=== PATIENT | female | born 1955 | race Caucasian/White ===

== ENCOUNTER → 2016-07-26 | Outpatient (REF) | payer BC ==
[~2016-07-26] MED LIST: /AMLO25TA OR; /ESOM40CA PO; /MOXI40TA OR; ACET65TA OR; ASPI81TA83 PO; CELE20TA PO; COMBVENT INH; INDAPAMIDE PO; MYLI40DR OR; POTA20TA2 OR; PRED20TA OR; PRED20TA PO; SYMB80AE INH; XANA0.25 OR; XOPE1.252 INH
[2016-07-26 15:44] LABS: ALBUMIN/GLOBULIN RATIO 1.43 (1.00-1.93); ALKALINE PHOSPHATASE 98 U/L (45-117); ALT/SGPT 21 U/L (12-78); ANION GAP 5 MEQ/L (8-16); AST/SGOT 15 U/L (15-37); BILIRUBIN,TOTAL 0.2 MG/DL (0.2-1.0); BLOOD UREA NITROGEN 13 MG/DL (7-18); CALCIUM LEVEL 9.6 MG/DL (8.8-10.2); CARBON DIOXIDE LEVEL 39 MEQ/L (21-32); CHLORIDE LEVEL 97 MEQ/L (98-107); GLOMERULAR FILTRATION RATE > 60.0 (>45); GLUCOSE, FASTING 113 MG/DL (80-110); MAGNESIUM LEVEL 2.1 MG/DL (1.8-2.4); POTASSIUM SERUM 3.3 MEQ/L (3.5-5.1); SODIUM LEVEL 141 MEQ/L (136-145); TOTAL PROTEIN 6.8 GM/DL (6.4-8.2)
== END ==
LOC: M SFHCPLAZ 14:04
PROVIDERS: ATTEND Nurse Practitioner Family
DX: I10 Essential (primary) hypertension (principal); E55.9 Vitamin D deficiency, unspecified; Z11.59 Encounter for screening for other viral diseases

== ENCOUNTER → 2016-08-02 | Outpatient (REF) | payer BC ==
[2016-08-02 12:51] LABS: ANION GAP 3 MEQ/L (8-16); BLOOD UREA NITROGEN 16 MG/DL (7-18); CALCIUM LEVEL 8.7 MG/DL (8.8-10.2); CARBON DIOXIDE LEVEL 38 MEQ/L (21-32); CHLORIDE LEVEL 100 MEQ/L (98-107); CREATININE FOR GFR 0.58 MG/DL (0.55-1.02); GLOMERULAR FILTRATION RATE > 60.0 (>45); GLUCOSE, FASTING 98 MG/DL (80-110); POTASSIUM SERUM 3.5 MEQ/L (3.5-5.1); SODIUM LEVEL 141 MEQ/L (136-145)
== END ==
LOC: M LABDRAW1 11:33
PROVIDERS: ATTEND Nurse Practitioner Family
DX: I10 Essential (primary) hypertension (principal)

== ENCOUNTER → 2016-08-16 | Outpatient (REF) | payer BC ==
[2016-08-16 16:10] LABS: ANION GAP 5 MEQ/L (8-16); BLOOD UREA NITROGEN 17 MG/DL (7-18); CARBON DIOXIDE LEVEL 41 MEQ/L (21-32); CHLORIDE LEVEL 94 MEQ/L (98-107); CREATININE FOR GFR 0.66 MG/DL (0.55-1.02); GLOMERULAR FILTRATION RATE > 60.0 (>45); GLUCOSE, FASTING 104 MG/DL (80-110); POTASSIUM SERUM 3.8 MEQ/L (3.5-5.1); SODIUM LEVEL 140 MEQ/L (136-145)
== END ==
LOC: M SFHCPLAZ 13:43
PROVIDERS: ATTEND Family Medicine
DX: I10 Essential (primary) hypertension (principal); J02.9 Acute pharyngitis, unspecified

== ENCOUNTER → 2016-12-24 | Outpatient (REF) | payer BC | LOC: M SFHCWAGY 11:09 | PROVIDERS: ATTEND Nurse Practitioner Family | DX: Z01.419 Encounter for gynecological examination (general) (routine) without abnormal findings (principal) ==

== ENCOUNTER → 2017-01-17 | Outpatient (REF) | payer BC ==
[2017-01-17 12:57] LABS: ALBUMIN 4.2 GM/DL (3.2-5.2); ALBUMIN/GLOBULIN RATIO 1.31 (1.00-1.93); ALKALINE PHOSPHATASE 102 U/L (45-117); ALT/SGPT 24 U/L (12-78); ANION GAP 5 MEQ/L (8-16); AST/SGOT 16 U/L (15-37); BILIRUBIN,TOTAL 0.5 MG/DL (0.2-1.0); BLOOD UREA NITROGEN 16 MG/DL (7-18); CALCIUM LEVEL 9.3 MG/DL (8.8-10.2); CARBON DIOXIDE LEVEL 38 MEQ/L (21-32); CHLORIDE LEVEL 98 MEQ/L (98-107); CREATININE FOR GFR 0.58 MG/DL (0.55-1.02); GLOMERULAR FILTRATION RATE > 60.0 (>45); GLUCOSE, FASTING 83 MG/DL (80-110); POTASSIUM SERUM 4.5 MEQ/L (3.5-5.1); SODIUM LEVEL 141 MEQ/L (136-145); TOTAL PROTEIN 7.4 GM/DL (6.4-8.2)
== END ==
LOC: M SFHCPLAZ 08:45
PROVIDERS: ATTEND Nurse Practitioner Family
DX: I10 Essential (primary) hypertension (principal)

== ENCOUNTER → 2017-03-15 | Outpatient (CLI) | payer BC ==
[2017-03-16 05:36] LABS: ABG HCO3 32.3 MEQ/L (22.0-26.0); ABG PARTIAL PRESSURE CO2 54.4 mmHg (35.0-45.0); ABG PARTIAL PRESSURE O2 96.6 mmHg (75.0-100.0); ABG STANDARD HCO3 29.9 MEQ/L (22.0-26.0); ABG TOTAL CO2 33.9 MEQ/L (23.0-31.0); ABG pH (ARTERIAL) 7.391 UNITS (7.350-7.450)
--- NOTE | 2017-03-18 12:48 | SLEEPCENT ---
DATE OF STUDY: 03/15/2017 ORDERED BY: Dr. Arvizu Nocturnal polysomnography was performed for reassessment of pressure therapy in this patient with a history of advanced obstructive lung disease and obstructive sleep apnea syndrome. For testing, a RespirAppUpper - ASO Sanam View full face mask of medium size was used. Initial bilevel pressure of inspiratory 12 over expiratory 6 was applied to the circuit and the lights were extinguished. 4 liters of oxygen was bled through the system during the study. 7 hours and 12 minutes of data were reviewed. There were 314 minutes of sleep identified. Sleep latency was mildly prolonged at 15 minutes. Rapid eye movement (REM) latency was prolonged at 129 75 minutes. Sleep architecture was fair with a prolonged period of wake late in the test. Overall sleep efficiency was 74.2%. The patient's electrocardiogram (EKG) showed a sinus rhythm with an average heart rate of 68 beats per minute. Electroencephalogram (EEG) showed coarsening in background, some alpha intrusion into non REM stages. Respiratory events were not seen with a bilevel pressure of 12/6 with 4 liters of oxygen. A slight increase in pressure was tried later in the test at 13/7. No significant change was seen. There was no snoring through the mask. Some limb activity was scattered over the course of the study. No trains of events were clearly identifiable and arousals from limb events occurred only 2.1 times per hour. IMPRESSION: Obstructive sleep apnea syndrome (G47.33). RECOMMENDATION: Nightly use of bilevel pressure therapy inspiratory 12 over expiratory 6 with 4 liters of oxygen bled through the system.
== END ==
LOC: M SLEEP 20:00
PROVIDERS: ATTEND Internal Medicine Pulmonary Disease
DX: G47.33 Obstructive sleep apnea (adult) (pediatric) (principal)

== ENCOUNTER → 2017-06-04 | Outpatient (CLI) | payer BC | LOC: M SMT 14:01 | DX: J44.9 Chronic obstructive pulmonary disease, unspecified (principal) | CPT/HCPCS: 71046 ==

== ENCOUNTER → 2017-06-11 | Outpatient (REF) | payer BC ==
[2017-06-11 16:25] LABS: ALBUMIN/GLOBULIN RATIO 1.38 (1.00-1.93); ALKALINE PHOSPHATASE 94 U/L (45-117); ALT/SGPT 17 U/L (12-78); ANION GAP 2 MEQ/L (8-16); AST/SGOT 16 U/L (7-37); BILIRUBIN,TOTAL 0.4 MG/DL (0.2-1.0); BLOOD UREA NITROGEN 18 MG/DL (7-18); CARBON DIOXIDE LEVEL 39 MEQ/L (21-32); CHLORIDE LEVEL 103 MEQ/L (98-107); CREATININE FOR GFR 0.56 MG/DL (0.55-1.30); GLOMERULAR FILTRATION RATE > 60.0 (>45); GLUCOSE, FASTING 84 MG/DL (70-100); MAGNESIUM LEVEL 2.2 MG/DL (1.8-2.4); POTASSIUM SERUM 3.8 MEQ/L (3.5-5.1); SODIUM LEVEL 144 MEQ/L (136-145); TOTAL PROTEIN 6.9 GM/DL (6.4-8.2)
[2017-06-11 16:28] LABS: TOTAL 25(OH) VITAMIN D 52.2 NG/ML (30.0-100.0)
== END ==
LOC: M SFHCPLAZ 11:14
DX: E55.9 Vitamin D deficiency, unspecified (principal); I10 Essential (primary) hypertension; K21.9 Gastro-esophageal reflux disease without esophagitis
CPT/HCPCS: 83735

== ENCOUNTER → 2017-10-17 | Outpatient (REF) | payer BC ==
[2017-10-17 16:12] LABS: RED BLOOD COUNT 4.31 10^6/uL (4.00-5.40); WHITE BLOOD COUNT 5.9 10^3/uL (4.0-10.0)
[2017-10-17 16:13] LABS: BASO % 0.3 % (0.0-1.0); EOS # 0.1 10^3/uL (0.0-0.50); HEMATOCRIT 40.1 % (36.0-47.0); HEMOGLOBIN 12.7 g/dl (12.0-15.5); IMMATURE GRANULOCYTE % 0.2 % (0-3.0); LYMPH % 16.9 % (24.0-44.0); MEAN CORPUSCULAR HEMOGLOBIN 29.5 pg (27.0-33.0); MEAN CORPUSCULAR HGB CONC 31.7 g/dl (32.0-36.5); MONO # 0.4 10^3/uL (0.0-0.8); MONO % 6.6 % (0.0-5.0); NEUTROPHILS # 4.4 10^3/uL (1.8-7.7); PLATELET COUNT, AUTOMATED 183 10^3/uL (150-450); RED CELL DISTRIBUTION WIDTH 12.9 % (11.5-14.5)
[2017-10-17 16:29] LABS: ALBUMIN/GLOBULIN RATIO 1.29 (1.00-1.93); ALKALINE PHOSPHATASE 93 U/L (45-117); ALT/SGPT 24 U/L (12-78); ANION GAP 5 MEQ/L (8-16); AST/SGOT 16 U/L (7-37); BILIRUBIN,TOTAL 0.3 MG/DL (0.2-1.0); BLOOD UREA NITROGEN 11 MG/DL (7-18); CALCIUM LEVEL 9.3 MG/DL (8.8-10.2); CARBON DIOXIDE LEVEL 38 MEQ/L (21-32); CHLORIDE LEVEL 102 MEQ/L (98-107); CREATININE FOR GFR 0.56 MG/DL (0.55-1.30); GLOMERULAR FILTRATION RATE > 60.0 (>45); GLUCOSE, FASTING 106 MG/DL (70-100); POTASSIUM SERUM 3.9 MEQ/L (3.5-5.1); SODIUM LEVEL 145 MEQ/L (136-145); TOTAL PROTEIN 7.1 GM/DL (6.4-8.2)
[2017-10-17 17:23] LABS: TOTAL 25(OH) VITAMIN D 36.6 NG/ML (30.0-100.0)
== END ==
LOC: M SFHCPLAZ 13:31
DX: J30.9 Allergic rhinitis, unspecified (principal); I10 Essential (primary) hypertension; E55.9 Vitamin D deficiency, unspecified
CPT/HCPCS: 80053

== ENCOUNTER → 2017-11-05 | Outpatient (CLI) | payer BC | LOC: M SMT 15:31 | DX: M54.5 Low back pain (principal) | CPT/HCPCS: 72100; G0463 ==

== ENCOUNTER → 2018-01-23 | Outpatient (REF) | payer BC ==
[2018-01-23 16:35] LABS: TOTAL 25(OH) VITAMIN D 80.7 NG/ML (30.0-100.0)
== END ==
LOC: M SFHCPLAZ 14:34
DX: E55.9 Vitamin D deficiency, unspecified (principal); R35.0 Frequency of micturition
CPT/HCPCS: 82306

== ENCOUNTER → 2018-12-21 | Outpatient (REF) | payer BC ==
[~2018-12-21] MED LIST changes: -/AMLO25TA OR; -/ESOM40CA PO; -/MOXI40TA OR; +AVEL1TAB2 OR; +NEXI1CAP3 PO; +NORV2TAB OR
[2018-12-21 16:15] LABS: ALT/SGPT 22 U/L (12-78); BILIRUBIN,TOTAL 0.3 MG/DL (0.2-1.0); BLOOD UREA NITROGEN 17 MG/DL (7-18); CALCIUM LEVEL 9.5 MG/DL (8.8-10.2); CARBON DIOXIDE LEVEL 37 MEQ/L (21-32); CHLORIDE LEVEL 101 MEQ/L (98-107); CREATININE FOR GFR 0.64 MG/DL (0.55-1.30); FREE T4 0.98 NG/DL (0.76-1.46); GLOMERULAR FILTRATION RATE > 60.0 (>45); GLUCOSE, FASTING 133 MG/DL (70-100); MAGNESIUM LEVEL 2.2 MG/DL (1.8-2.4); POTASSIUM SERUM 4.5 MEQ/L (3.5-5.1); SODIUM LEVEL 143 MEQ/L (136-145); TOTAL PROTEIN 6.8 GM/DL (6.4-8.2)
[2018-12-21 16:16] LABS: TOTAL 25(OH) VITAMIN D 37.7 NG/ML (30.0-100.0); VITAMIN B12 LEVEL 351 PG/ML
[2018-12-21 16:17] LABS: FOLATE 20.9 NG/ML
== END ==
LOC: M SFHCPLAZ 13:01
PROVIDERS: ATTEND Nurse Practitioner Family
DX: I10 Essential (primary) hypertension (principal); F41.1 Generalized anxiety disorder; K21.9 Gastro-esophageal reflux disease without esophagitis; E55.9 Vitamin D deficiency, unspecified

== ENCOUNTER → 2019-03-05 | Outpatient (REF) | payer BC ==
[2019-03-05 18:28] LABS: HEMOGLOBIN A1c 5.4 %
[2019-03-05 18:31] LABS: BLOOD UREA NITROGEN 13 MG/DL (7-18); CALCIUM LEVEL 9.4 MG/DL (8.8-10.2); CARBON DIOXIDE LEVEL 40 MEQ/L (21-32); CHLORIDE LEVEL 102 MEQ/L (98-107); CREATININE FOR GFR 0.57 MG/DL (0.55-1.30); GLOMERULAR FILTRATION RATE > 60.0 (>45); GLUCOSE, FASTING 69 MG/DL (70-100); MAGNESIUM LEVEL 2.3 MG/DL (1.8-2.4); SODIUM LEVEL 144 MEQ/L (136-145)
[2019-03-05 18:42] LABS: CREATININE, URINE 72.5 MG/DL; MALB URINE SIEMENS 21.8 MG/L; TOTAL 25(OH) VITAMIN D 61.3 NG/ML (30.0-100.0)
== END ==
LOC: M SFHCPLAZ 15:54
PROVIDERS: ATTEND Nurse Practitioner Family
DX: Z13.1 Encounter for screening for diabetes mellitus (principal); I10 Essential (primary) hypertension; E55.9 Vitamin D deficiency, unspecified

== ENCOUNTER → 2020-01-13 | Outpatient (REF) | payer BC ==
[2020-01-13 18:01] LABS: CREATININE, URINE 37.5 MG/DL
[2020-01-13 18:10] LABS: ALBUMIN 4.2 GM/DL (3.2-5.2); ALT/SGPT 26 U/L (12-78); BILIRUBIN,TOTAL 0.3 MG/DL (0.2-1.0); BLOOD UREA NITROGEN 14 MG/DL (7-18); CALCIUM LEVEL 10.3 MG/DL (8.8-10.2); CARBON DIOXIDE LEVEL 44 MEQ/L (21-32); CHLORIDE LEVEL 97 MEQ/L (98-107); CHOLESTEROL LEVEL 235 MG/DL (<200); CHOLESTEROL RISK RATIO 2.136 (<5); CREATININE FOR GFR 0.49 MG/DL (0.55-1.30); GLOMERULAR FILTRATION RATE > 60.0 (>45); GLUCOSE, FASTING 107 MG/DL (70-100); HDL CHOLESTEROL 110 MG/DL (>40); LDL CHOLESTEROL 110 MG/DL (<100); MAGNESIUM LEVEL 2.3 MG/DL (1.8-2.4); NON-HDL-C 125 MG/DL; SODIUM LEVEL 141 MEQ/L (136-145); TOTAL PROTEIN 7.3 GM/DL (6.4-8.2); TRIGLYCERIDES LEVEL 76 MG/DL (<150)
[2020-01-14 10:00] LABS: TOTAL 25(OH) VITAMIN D 35.9 NG/ML (30.0-100.0)
== END ==
LOC: M PLALAB 15:12
PROVIDERS: ATTEND Nurse Practitioner Family
DX: I10 Essential (primary) hypertension (principal); E55.9 Vitamin D deficiency, unspecified

== ENCOUNTER 2020-03-15 09:36 | Inpatient (IN) | payer BC ==
[~2020-03-15] VITALS: Ht 165.1 cm; Wt 57.7 kg
[2020-03-15] MEDS ORDERED: VENL75CA47 PO (10:02)
[2020-03-15] MEDS ORDERED: BUDE10.2 INH (10:02)
[2020-03-15] MEDS ORDERED: LEVA45AE INH (10:02)
[2020-03-15] MEDS ORDERED: PRED10TA2 (10:02)
[2020-03-15] MEDS ORDERED: ALPR0.25 PO (10:02)
[2020-03-15] MEDS ORDERED: FLUC100T (10:02)
[2020-03-15] MEDS ORDERED: AZIT500T5 (10:02)
[2020-03-15 10:45] LABS: BASO % 0.3 % (0.0-1.0); EOS # 0.1 10^3/uL (0.0-0.5); EOS % 0.9 % (0.0-3.0); HEMATOCRIT 47.1 % (36.0-47.0); HEMOGLOBIN 14.1 g/dl (12.0-15.5); LYMPH # 0.9 10^3/uL (1.5-5.0); LYMPH % 16.2 % (24.0-44.0); MEAN CORPUSCULAR HEMOGLOBIN 29.5 pg (27.0-33.0); MEAN CORPUSCULAR HGB CONC 29.9 g/dl (32.0-36.5); MEAN CORPUSCULAR VOLUME 98.5 fl (80.0-96.0); MONO # 0.4 10^3/uL (0.0-0.8); NEUTROPHILS # 4.3 10^3/uL (1.5-8.5); NEUTROPHILS % 75.4 % (36.0-66.0); PLATELET COUNT, AUTOMATED 149 10^3/uL (150-450); RED BLOOD COUNT 4.78 10^6/uL (4.00-5.40); WHITE BLOOD COUNT 5.7 10^3/uL (4.0-10.0)
[2020-03-15 11:07] LABS: ABG BASE EXCESS 15.3 (-2.0-2.0); ABG HCO3 45.6 MEQ/L (22.0-26.0); ABG O2 SATURATION 98.9 % (95.0-99.0); ABG PARTIAL PRESSURE CO2 88.7 mmHg (35.0-45.0); ABG PARTIAL PRESSURE O2 147.8 mmHg (75.0-100.0); ABG STANDARD HCO3 39.3 MEQ/L (22.0-26.0); ABG TOTAL CO2 48.3 MEQ/L (23.0-31.0); ABG pH (ARTERIAL) 7.329 UNITS (7.350-7.450)
[2020-03-15 11:13] LABS: ALBUMIN 4.2 GM/DL (3.2-5.2); ALT/SGPT 26 U/L (12-78); BILIRUBIN,DIRECT 0.1 MG/DL (0.0-0.2); BILIRUBIN,TOTAL 0.5 MG/DL (0.2-1.0); BLOOD UREA NITROGEN 13 MG/DL (7-18); CALCIUM LEVEL 10.2 MG/DL (8.8-10.2); CARBON DIOXIDE LEVEL 45 MEQ/L (21-32); CHLORIDE LEVEL 90 MEQ/L (98-107); CK-MB VALUE MASS 2.5 NG/ML (<3.6); CPK CREATINE PHOSPHOKINASE 90 U/L (26-192); CREATININE FOR GFR 0.58 MG/DL (0.55-1.30); GLOMERULAR FILTRATION RATE > 60.0 (>45); GLUCOSE, FASTING 111 MG/DL (70-100); MB/CK RELATIVE INDEX 2.78 (< OR =4); NT-PRO BNP 126 PG/ML (<125); POTASSIUM SERUM 3.6 MEQ/L (3.5-5.1); SODIUM LEVEL 137 MEQ/L (136-145); TOTAL PROTEIN 7.8 GM/DL (6.4-8.2); TROPONIN I < 0.02 NG/ML (< 0.10)
--- NOTE | 2020-03-15 12:14 | REP ---
INDICATION: DYSPNEA/COUGH. COMPARISON: 06/04/2017 a PA and lateral view exam FINDINGS: The technique utilized in obtaining the radiograph has magnified the cardiac silhouette and accentuated the interstitial markings. Once again, there is advanced bullous emphysematous change seen throughout the lung maynard left much greater than right. This has a stable appearance. There are bibasilar fibrotic changes which are eccentric weighted by technique but otherwise appear stable. No definite acute patchy parenchymal opacities or pleural effusions have developed. The cardiomediastinal silhouette is stable. Calcified bilateral hilar lymph nodes are again noted. There is no change in the osseous structures. IMPRESSION: There is no acute cardiopulmonary disease. Chronic changes as described above. <Electronically signed by Tk Ross > 03/15/20 [id number]
[2020-03-15] MEDS ORDERED: IPRATROPIUM 0.5MG/ALBUTEROL 2.5MG INH SOL UD 3ML (DUONEB) NEB ONE (12:15)
[2020-03-15 13:46] LABS: ABG BASE EXCESS 13.9 (-2.0-2.0); ABG HCO3 44.1 MEQ/L (22.0-26.0); ABG O2 SATURATION 98.9 % (95.0-99.0); ABG PARTIAL PRESSURE O2 149.3 mmHg (75.0-100.0); ABG STANDARD HCO3 37.7 MEQ/L (22.0-26.0); ABG TOTAL CO2 46.8 MEQ/L (23.0-31.0); ABG pH (ARTERIAL) 7.316 UNITS (7.350-7.450)
[2020-03-15 13:47] LABS: ABG PARTIAL PRESSURE CO2 88.3 mmHg (35.0-45.0)
[2020-03-15] MEDS ORDERED: COMBAER6 INH (14:49)
[2020-03-15] MEDS ORDERED: ACETAMINOPHEN TAB 650MG DOSE (2X325MG) PO PRN (15:00)
[2020-03-15] MEDS ORDERED: ATORVASTATIN 20 MG TAB PO ONE (15:45)
--- NOTE | 2020-03-15 15:53 | HPEPDOC ---
General Date of Admission 03/15/20 Date of Service: Mar 15, 2020 Chief Complaint The patient is a 64-year-old female admitted with a reason for visit of COUGH. 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 Patient stated that around 2 weeks ago she started feeling increased shortness of breath, developed cough with greenish sputum production. Patient was prescribed azithromycin for 10 days after a course of azithromycin patient started feeling better, however she continues to have cough. Dr Arvizu prescribed additional course of azithromycin, but patient didn't take it because of stomach upset. Today patient feels more congested breathing with increased cough. In ER patient was found to have no leukocytosis, BNP was within normal limit. Chest x-ray showed no acute cardiopulmonary disease Home Medications Scheduled Alprazolam (Alprazolam) 0.25 Mg Tablet, 0.25 MG PO BID, (Reported) Budesonide/Formoterol Fumarate (Budesonide-Formoterol 160-4.5) 10.2 Gm Hfa.aer.ad, 2 PUFFS INH BID, (Reported) Venlafaxine HCl (Venlafaxine HCl ER) 75 Mg Cap.er.24h, 75 MG PO DAILY, (Reported) Scheduled PRN Ipratropium/Albuterol Sulfate (Combivent Respimat 20-100 Mcg) 4 Gm Mist.inhal, 2 PUFF INH QID PRN for SHORTNESS OF BREATH, (Reported) Levalbuterol Tartrate (Levalbuterol Tartrate Hfa) 15 Gm Hfa.aer.ad, 2 PUFFS INH QID PRN for SOB/WHEEZING, (Reported) Allergies Coded Allergies: Sulfa (Sulfonamide Antibiotics) (Verified Allergy, Severe, CANT BREATHE, 03/15/20) Past Medical History Medical History COPD, EMPHYSEMA WITH ALPHA 1 ANTITRYPSIN DEFICIENCY - PULMONOLOGY, FEV1 = 0.35 ON 06/24/18 ESOPHAGEAL REFLUX, HIATAL HERNIA DEPRESSION SEASONAL ALLERGIES ARTHRITIS HYPERLIPIDEMIA, MIXED OSTEOPENIA SLEEP APNEA HYPERTENSION, ESSENTIAL MIXED HYPERLIPIDEMIA ANXIETY STATE VITAMIN D DEFICIENCY PSORIASIS CHRONIC RESPIRATORY FAILURE WITH HYPOXIA OBSTRUCTIVE SLEEP APNEA Surgical History TUBAL LIGATION 1982 CHOLECYSTECTOMY 1992 TUMOR REMOVED FROM RIGHT RING FINGER 1993 Family History I personally reviewed family history and found not pertinent Social History * Smoker: former Smoker Alcohol: Denies Drugs: denies A-FIB/CHADSVASC A-FIB History Current/History of A-Fib/PAF?: No Current PO Anticoag Therapy: No Review of Systems Constitutional: Reports: Weakness; Denies: Chills, Fever Eyes: Denies: Pain ENT: Denies: Head Aches Skin: Denies: Rash Pulmonary: Reports: Dyspnea, Cough Cardiovascular: Denies: Chest Pain Gastrointestinal: Denies: Nausea, Vomiting Genitourinary: Denies: Dysuria Hematologic: Denies: Bruising, Bleeding Excessively Endocrine: Denies: Polydipsia Musculoskeletal: Denies: Neck Pain, Back Pain Neurological: Denies: Weakness Psych: Reports: Mood Normal Physical Examination General Exam: Positive: Alert, Cooperative Eye Exam: Positive: PERRLA ENT Exam: Positive: Atraumatic Neck Exam: Positive: Supple; Negative: JVD Chest Exam: Positive: Clear to auscultation Heart Exam: Positive: Tachycardic Telemetry: Positive: Sinus Abdomen Exam: Positive: Normal bowel sounds Extremity Exam: Positive: Clubbing; Negative: Cyanosis Skin Exam: Positive: Nl turgor and temperature Neuro Exam: Positive: Normal Gait, Strength at 5/5 X4 ext Psych Exam: Positive: Mental status NL Vital Signs Vital Signs Date Time Temp Pulse Resp B/P (MAP) Pulse Ox O2 Delivery O2 Flow Rate FiO2 03/15/20 12:20 114 03/15/20 12:05 24 100 Nasal Cannula 6.0 03/15/20 12:00 112/63 (79) 03/15/20 09:56 99.0 Laboratory Data Labs 24H Laboratory Tests 2 03/15/20 10:29: Immature Granulocyte % (Auto) 0.2, Neutrophils (%) (Auto) 75.4H, Lymphocytes (%) (Auto) 16.2L, Monocytes (%) (Auto) 7.0H, Eosinophils (%) (Auto) 0.9, Basophils (%) (Auto) 0.3, Neutrophils # (Auto) 4.3, Lymphocytes # (Auto) 0.9L, Monocytes # (Auto) 0.4, Eosinophils # (Auto) 0.1, Basophils # (Auto) 0.0, Nucleated Red Blood Cells % (auto) 0.0, Anion Gap 2L, Glomerular Filtration Rate > 60.0, Calcium Level 10.2, Total Bilirubin 0.5, Direct Bilirubin 0.1, Aspartate Amino Transf (AST/SGOT) 24, Alanine Aminotransferase (ALT/SGPT) 26, Alkaline Phosphatase 109, Total Creatine Kinase 90, Creatine Kinase MB 2.5, Creatine Kinase MB Relative Index 2.78, Troponin I < 0.02, VI-Cpy-Q-Type Natriuretic Peptide 126H, Total Protein 7.8, Albumin 4.2, Albumin/Globulin Ratio 1.2 03/15/20 10:47: Blood Gas Bicarbonate Standard 39.3H, Arterial Blood pH 7.329L, Arterial Blood Partial Pressure CO2 88.7*H, Arterial Blood Partial Pressure O2 147.8H, Arterial Blood Total CO2 48.3H, Arterial Blood HCO3 45.6H, Arterial Blood Base Excess 15.3H, Arterial Blood Oxygen Saturation 98.9 03/15/20 13:34: Blood Gas Bicarbonate Standard 37.7H, Arterial Blood pH 7.316L, Arterial Blood Partial Pressure CO2 88.3*H, Arterial Blood Partial Pressure O2 149.3H, Arterial Blood Total CO2 46.8H, Arterial Blood HCO3 44.1H, Arterial Blood Base Excess 13 .9H, Arterial Blood Oxygen Saturation 98.9 CBC/BMP Laboratory Tests 03/15/20 10:29 Microbiology Microbiology 03/15/20 Blood Culture, Received Pending 03/15/20 Blood Culture, Received Pending 03/15/20 Respiratory Virus Panel (PCR) ([facility]) - Final, Complete Assessment/Plan Patient is 64 years old female with past medical history of bullous emphysema secondary to alpha-1 antitrypsin deficiency chronically on the home oxygen 6 L presented hospital with increased shortness of breath. Patient stated that around 2 weeks ago she started feeling increased shortness of breath, developed cough with greenish sputum production. Patient was prescribed azithromycin for 10 days after a course of azithromycin patient started feeling better, however she continues to have cough. Dr Arvizu prescribed additional course of loyd thromycin, but patient didn't take it because of stomach upset. Today patient feels more congested breathing with increased cough. In ER patient was found to have no leukocytosis, BNP was within normal limit. Chest x-ray showed no acute cardiopulmonary disease Problems (1) COPD exacerbation Status: Acute Problem Text: Patient has emphysema with bullous changes secondary to alpha-1 antitrypsin deficiency Patient stated that she has increased cough with congested chest Blood gas showed acute hypercapnic respiratory failure BiPAP Blood gas monitor Levofloxacin We will check a procalcitonin (2) Acute and chronic respiratory failure with hypercapnia Status: Acute Problem Text: see above (3) Hypertension Status: Chronic Problem Text: Lisinopril 20 mg (4) Hyperlipidemia Status: Chronic Problem Text: statin Plan / VTE VTE Prophylaxis Ordered?: Yes NIYA GRIFFITH DO Mar 15, 2020 15:53
[2020-03-15] MEDS ORDERED: LEVALBUTEROL HFA 45MCG/ACT 15 GM INHALER INH PRN (16:00)
[2020-03-15] MEDS ORDERED: lisinopriL 20 MG TAB PO SCH (16:00)
[2020-03-15] MEDS: LevoFLOXacin 750 MG TABLET PO SCH (16:58)
[2020-03-15 17:58] VITALS: BP 144/82
[2020-03-15] MEDS: SYMBICORT 160/4.5MCG INHALER 6GM INH SCH (20:00)
[2020-03-15] MEDS: IPRATROPIUM 0.5MG/ALBUTEROL 2.5MG INH SOL UD 3ML (DUONEB) NEB SCH (20:09)
[2020-03-15 20:21] VITALS: BP 150/88
[2020-03-15] MEDS ORDERED: ALPRAZolam 0.25 MG TAB PO SCH (21:00)
[2020-03-15 23:00] VITALS: O2SAT 96
[2020-03-15] MEDS ORDERED: ALPRAZolam 0.25 MG TAB PO ONE (23:00)
[2020-03-16] VITALS (20 sets, daily range): BP systolic 108–163; BP diastolic 58–90; O2SAT 88–99
[2020-03-16] MEDS: IPRATROPIUM 0.5MG/ALBUTEROL 2.5MG INH SOL UD 3ML (DUONEB) NEB SCH ×2 (01:37→07:09)
[2020-03-16 05:16] LABS: HEMATOCRIT 40.5 % (36.0-47.0); HEMOGLOBIN 12.4 g/dl (12.0-15.5); MEAN CORPUSCULAR HEMOGLOBIN 29.5 pg (27.0-33.0); MEAN CORPUSCULAR HGB CONC 30.6 g/dl (32.0-36.5); MEAN CORPUSCULAR VOLUME 96.2 fl (80.0-96.0); PLATELET COUNT, AUTOMATED 136 10^3/uL (150-450); RED BLOOD COUNT 4.21 10^6/uL (4.00-5.40); WHITE BLOOD COUNT 5.7 10^3/uL (4.0-10.0)
[2020-03-16 05:43] LABS: BLOOD UREA NITROGEN 13 MG/DL (7-18); CALCIUM LEVEL 10.1 MG/DL (8.8-10.2); CARBON DIOXIDE LEVEL 42 MEQ/L (21-32); CHLORIDE LEVEL 93 MEQ/L (98-107); CREATININE FOR GFR 0.56 MG/DL (0.55-1.30); GLOMERULAR FILTRATION RATE > 60.0 (>45); GLUCOSE, FASTING 89 MG/DL (70-100); POTASSIUM SERUM 3.7 MEQ/L (3.5-5.1); SODIUM LEVEL 137 MEQ/L (136-145)
[2020-03-16] MEDS: LevoFLOXacin 750 MG TABLET PO SCH (06:40)
[2020-03-16 06:52] LABS: ABG BASE EXCESS 10.2 (-2.0-2.0); ABG HCO3 37.4 MEQ/L (22.0-26.0); ABG O2 SATURATION 96.5 % (95.0-99.0); ABG PARTIAL PRESSURE CO2 62.4 mmHg (35.0-45.0); ABG PARTIAL PRESSURE O2 87.6 mmHg (75.0-100.0); ABG STANDARD HCO3 33.9 MEQ/L (22.0-26.0); ABG TOTAL CO2 39.4 MEQ/L (23.0-31.0); ABG pH (ARTERIAL) 7.396 UNITS (7.350-7.450)
[2020-03-16] MEDS: SYMBICORT 160/4.5MCG INHALER 6GM INH SCH ×2 (07:09→19:19)
[2020-03-16] MEDS: ALPRAZolam 0.5 MG TAB PO SCH ×2 (08:37→21:49)
[2020-03-16] MEDS: PANTOPRAZOLE 40MG TAB (PROTONIX) PO SCH (08:37)
[2020-03-16] MEDS: lisinopriL 20 MG TAB PO SCH (08:37)
[2020-03-16] MEDS: VENLAFAXINE **XR** 75MG CAPSULE PO SCH (08:37)
[2020-03-16] MEDS: ENOXAPARIN 40MG/0.4ML SYRINGE (J1650 PER 10MG) SC SCH (08:38)
[2020-03-16] MEDS ORDERED: SODIUM CHLORIDE NASAL 0.65% SPRAY BTL (OCEAN) PRN (09:00)
[2020-03-16] MEDS: IPRATROPIUM 0.02% SOLN 0.5MG 2.5ML NEB INH SCH ×3 (09:56→19:19)
--- NOTE | 2020-03-16 11:23 | IPNPDOC ---
Text Note Date of Service The patient was seen on 03/16/20. NOTE Subjective: Patient complains of moderate difficulties in swallowing and dry nose. Patient stated that she had intermittent nasal bleed when she is on oxygen Objective: GENERAL APPEARANCE: NAD HEENT: no scleral icterus, no JVD, EOMI CARDIOVASCULAR: S1S2 LUNGS: Diminished lung sounds bilaterally ABDOMEN: soft & not tender w palpitation MUSCULOSKELETAL: no cyanosis, no swelling INTEGUMENT: no generalized palor NEUROLOGICAL: cranial nerve function from 2-12 intact intact, follows commands, speech not dysarthric Assessment/Plan Patient is 64 years old female with past medical history of bullous emphysema secondary to alpha-1 antitrypsin deficiency chronically on the home oxygen 6 L presented hospital with increased shortness of breath. Patient stated that a round 2 weeks ago she started feeling increased shortness of breath, developed cough with greenish sputum production. Patient was prescribed azithromycin for 10 days after a course of azithromycin patient started feeling better, however she continues to have cough. Dr Arvizu prescribed additional course of azithromycin, but patient didn't take it because of stomach upset. Today patient feels more congested breathing with increased cough. In ER patient was found to have no leukocytosis, BNP was within normal limit. Chest x-ray showed no acute cardiopulmonary disease Problems (1) COPD exacerbation Patient has emphysema with bullous changes secondary to alpha-1 antitrypsin deficiency Patient stated that she has increased cough with congested chest Blood gas showed acute hypercapnic respiratory failure. Today blood gas showed significant improvement BiPAP Blood gas monitor Levofloxacin We will check a procalcitonin (2) Acute and chronic respiratory failure with hypercapnia Resolved. Patient continues to be on the 6 L of oxygen (3) Hypertension Lisinopril 20 mg (4) Hyperlipidemia statin Difficulty swallowing/oropharyngeal dysfunction Speech specialist recommended modified diet Nasal dryness Normal saline spray VS,Fishbone, I+O VS, Fishbone, I+O Laboratory Tests 03/16/20 04:43 Vital Signs Date Time Temp Pulse Resp B/P (MAP) Pulse Ox O2 Delivery O2 Flow Rate FiO2 03/16/20 08:37 143/87 03/16/20 08:00 6.0 03/16/20 08:00 98.3 110 18 96 Room Air I&O- Last 24 Hours up to 6 AM 03/16/20 06:00 Intake Total 120 ml Output Total 425 ml Balance -305 ml DROZHZHIN,NIYA DO Mar 16, 2020 11:23
[2020-03-16] MEDS ORDERED: VARIBAR PUDDING 40% w/v 230ML TUBE As Ordered ONE (13:32)
[2020-03-16] MEDS ORDERED: E-Z-PAQUE 96% w/w SUSP 176GM BTL As Ordered ONE (13:32)
[2020-03-16] MEDS ORDERED: PANTOPRAZOLE 20 MG TAB PO ONE (15:30)
--- NOTE | 2020-03-16 16:16 | REP ---
INDICATION: dysphagia. COMPARISON: None. TECHNIQUE: The procedure was performed under the direct supervision of Dr. Hensley. The procedure was performed with Claudette Gomez from speech pathology present. 5 cc aliquots of thin, pudding, soft and solid consistency barium was administered. With thin consistency barium there is laryngeal penetration. FINDINGS: With thin consistency barium there is laryngeal penetration. IMPRESSION: With thin consistency barium there is laryngeal penetration. A detailed report of this examination will be provided by speech pathology. 2 minutes of fluoroscopy time was utilized for this procedure. <Electronically signed by Rl Omalley > 03/16/20 1441 <Electronically signed by Emanuel Hensley > 03/16/20 [id number]
[2020-03-17] VITALS (10 sets, daily range): BP systolic 90–134; BP diastolic 54–79; O2SAT 95
[2020-03-17] MEDS: IPRATROPIUM 0.02% SOLN 0.5MG 2.5ML NEB INH SCH ×3 (02:39→14:05)
[2020-03-17 06:29] LABS: HEMATOCRIT 39.4 % (36.0-47.0); MEAN CORPUSCULAR HEMOGLOBIN 29.3 pg (27.0-33.0); MEAN CORPUSCULAR HGB CONC 30.5 g/dl (32.0-36.5); MEAN CORPUSCULAR VOLUME 96.1 fl (80.0-96.0); PLATELET COUNT, AUTOMATED 120 10^3/uL (150-450); WHITE BLOOD COUNT 8.8 10^3/uL (4.0-10.0)
[2020-03-17 06:51] LABS: CREATININE FOR GFR 1.17 MG/DL (0.55-1.30)
[2020-03-17 06:52] LABS: CALCIUM LEVEL 9.4 MG/DL (8.8-10.2); GLOMERULAR FILTRATION RATE 49.3 (>45); MAGNESIUM LEVEL 1.8 MG/DL (1.8-2.4); POTASSIUM SERUM 3.3 MEQ/L (3.5-5.1)
[2020-03-17] MEDS: SYMBICORT 160/4.5MCG INHALER 6GM INH SCH (07:16)
[2020-03-17] MEDS ORDERED: POTASSIUM CHLORIDE 10 MEQ SR TABLET PO ONE (08:00)
[2020-03-17] MEDS: ENOXAPARIN 40MG/0.4ML SYRINGE (J1650 PER 10MG) SC SCH (08:16)
[2020-03-17] MEDS: lisinopriL 20 MG TAB PO SCH (08:17)
[2020-03-17] MEDS: VENLAFAXINE **XR** 75MG CAPSULE PO SCH (08:17)
[2020-03-17] MEDS: PANTOPRAZOLE 40MG TAB (PROTONIX) PO SCH (08:17)
[2020-03-17] MEDS: LevoFLOXacin 750 MG TABLET PO SCH (08:18)
[2020-03-17] MEDS: ALPRAZolam 0.5 MG TAB PO SCH (08:18)
[2020-03-17] MEDS ORDERED: METOPROLOL SUCC *XL* 25MG TAB (TopROL *XL*) PO SCH (09:00)
[2020-03-17] MEDS ORDERED: LEVO750T13 PO (10:33)
[2020-03-17] MEDS ORDERED: METO1TAB32 PO (11:29)
--- NOTE | 2020-03-17 12:07 | ECHO ---
DATE OF PROCEDURE: 03/16/2020 Age: 64 Gender: Female Height: 165 cm Weight: 58 kg REFERRING PHYSICIAN: Carlos Andrade DO. INDICATION: Dyspnea. MEASUREMENTS: IVS 0.9 cm LV 4.3 cm LVPW 0.8 cm LA 2.8 cm Aorta 2.4 cm RV 2.8 cm IVC 2.3 cm Mitral E wave velocity 100 cm/s Mitral A wave 50 cm/s FINDINGS: This study is of very limited technical quality with poor quality of imaging. Underlying sinus tachycardia with ventricular rate approximately 120 beats per minute. Left ventricle is normal size and overall likely has normal systolic function, I estimate around 60%. No segmental wall motion abnormalities are appreciated. The right ventricle appears to be normal size and systolic function as well. Both atria appear normal. Aortic, mitral, tricuspid, and pulmonic valves were fairly well seen and appear normal. There is a small amount of pericardial fat pad with associated small pericardial effusion. No signs of cardiac compression. Inferior vena cava is dilated and there is no appreciable collapse with inspiration indicative of high central venous pressure. Aortic root and abdominal aorta appear normal. Aortic arch was not well seen. Doppler interrogation reveals competent aortic and mitral valves. There is trace tricuspid insufficiency. Calculated pulmonary artery pressure is at least in the low 40s corresponding to moderate pulmonary hypertension. Pulmonic valve is functionally competent. Evaluation of diastolic function is limited due to lack of tissue Doppler velocities of the mitral annulus, but based on mitral inflow pattern, I suspect that there is likely grade 2 diastolic dysfunction. CONCLUSIONS: 1. Study is of fair technical quality, underlying sinus tachycardia. 2. Normal left ventricular (LV) size and systolic function. 3. Probably grade 2 diastolic dysfunction. 4. No significant valvular disease. 5. Elevated central venous pressure and at least moderate pulmonary hypertension. 6. Pericardial fat pad with small noncompressive pericardial effusion. MTDD
--- NOTE | 2020-03-17 17:02 | DS.PDOC ---
Discharge Summary General Date of Admission Mar 15, 2020 at 15:22 Date of Discharge 03/17/20 Discharge Summary PROCEDURES PERFORMED DURING STAY: [None]. ADMITTING DIAGNOSES: COPD exacerbation Acute and chronic respiratory failure with hypercapnia Hypertension Hyperlipidemia DISCHARGE DIAGNOSES: COPD exacerbation Acute and chronic respiratory failure with hypercapnia Hypertension Hyperlipidemia COMPLICATIONS/CHIEF COMPLAINT: Acute And Chronic Respiratory Failure With Hyperca. HISTORY OF PRESENT ILLNESS: Patient is 64 years old female with past medical history of bullous emphysema secondary to alpha-1 antitrypsin deficiency chronically on the home oxygen 6 L presented hospital with increased shortness of breath. Patient stated that around 2 weeks ago she started feeling increased shortness of breath, developed cough with greenish sputum production. Patient was prescribed azithromycin for 10 days after a course of azithromycin patient started feeling better, however she continues to have cough. Dr Arvizu prescribed additional course of azithromycin, but patient didn't take it because of stomach upset. Today patient feels more congested breathing with increased cough. In ER patient was found to have no leukocytosis, BNP was within normal limit. Chest x-ray showed no acute cardiopulmonary disease HOSPITAL COURSE: During hospital stay following issue addressed (1) COPD exacerbation Patient has emphysema with bullous changes secondary to alpha-1 antitrypsin deficiency Patient stated that she has increased cough with congested chest Patient received treatment with BiPAP Patient received treatment with Levofloxacin (2) Acute and chronic respiratory failure with hypercapnia Resolved. Patient continues to be on the 6 L of oxygen, is her baseline (3) Hypertension Lisinopril 20 mg (4) Hyperlipidemia statin Difficulty swallowing/oropharyngeal dysfunction Speech specialist recommended modified diet Patient will need endoscopy in the outpatient settings Nasal dryness Normal saline spray DISCHARGE MEDICATIONS: Please see below. ALLERGIES: Please see below. PHYSICAL EXAMINATION ON DISCHARGE: VITAL SIGNS: Please see below. GENERAL APPEARANCE: NAD HEENT: no scleral icterus, no JVD, EOMI CARDIOVASCULAR: S1S2 LUNGS: Diminished lung sounds bilaterally ABDOMEN: soft & not tender w palpitation MUSCULOSKELETAL: no cyanosis, no swelling INTEGUMENT: no generalized palor NEUROLOGICAL: cranial nerve function from 2-12 intact intact, follows commands, speech not dysarthric LABORATORY DATA: Please see below. IMAGING: COMPARISON: 06/04/2017 a PA and lateral view exam FINDINGS: The technique utilized in obtaining the radiograph has magnified the cardiac silhouette and accentuated the interstitial markings. Once again, there is advanced bullous emphysematous change seen throughout the lung maynard left much greater than right. This has a stable appearance. There are bibasilar fibrotic changes which are eccentric weighted by technique but otherwise appear stable. No definite acute patchy parenchymal opacities or pleural effusions have developed. The cardiomediastinal silhouette is stable. Calcified bilateral hilar lymph nodes are again noted. There is no change in the osseous structures. IMPRESSION: There is no acute cardiopulmonary disease. Chronic changes as described above. PROGNOSIS: Fair ACTIVITY: [As tolerated]. DIET: Cardiac DISPOSITION: Home, Self-Care. ITEMS TO FOLLOWUP ON ON OUTPATIENT: Follow-up with government affairs manager and GI for possible endoscopy DISCHARGE CONDITION: [Stable]. TIME SPENT ON DISCHARGE: Greater than 20 minutes. Vital Signs/I&Os Vital Signs Date Time Temp Pulse Resp B/P (MAP) Pulse Ox O2 Delivery O2 Flow Rate FiO2 03/17/20 12:40 113 111/72 03/17/20 11:59 98.9 22 99 Nasal Cannula 6.0 I&O- Last 24 Hours up to 6 AM 03/17/20 06:00 Intake Total 600 ml Output Total 400 ml Balance 200 ml Laboratory Data Labs 24H Laboratory Tests 2 03/17/20 05:05: Nucleated Red Blood Cells % (auto) 0.0, Anion Gap 4L, Glomerular Filtration Rate 49.3, Calcium Level 9.4, Magnesium Level 1.8 CBC/BMP Laboratory Tests 03/17/20 05:05 Microbiology Microbiology 03/15/20 Blood Culture - Preliminary, Resulted No Growth after 48 hours. All Specime... 03/15/20 Blood Culture - Preliminary, Resulted No Growth after 48 hours. All Specime... 03/15/20 Respiratory Virus Panel (PCR) ([facility]) - Final, Complete Discharge Medications Scheduled Alprazolam (Alprazolam) 0.25 Mg Tablet, 0.25 MG PO BID, (Reported) Budesonide/Formoterol Fumarate (Budesonide-Formoterol 160-4.5) 10.2 Gm Hfa.aer.ad, 2 PUFFS INH BID, (Reported) Levofloxacin (Levofloxacin) 750 Mg Tablet, 750 MG PO DAILY@06 Metoprolol Succinate (Metoprolol Succinate) 25 Mg Tab.er.24h, 1 TAB PO DAILY Venlafaxine HCl (Venlafaxine HCl ER) 75 Mg Cap.er.24h, 75 MG PO DAILY, (Reported) Scheduled PRN Ipratropium/Albuterol Sulfate (Combivent Respimat 20-100 Mcg) 4 Gm Mist.inhal, 2 PUFF INH QID PRN for SHORTNESS OF BREATH, (Reported) Levalbuterol Tartrate (Levalbuterol Tartrate Hfa) 15 Gm Hfa.aer.ad, 2 PUFFS INH QID PRN for SOB/WHEEZING, (Reported) Allergies Coded Allergies: Sulfa (Sulfonamide Antibiotics) (Verified Allergy, Severe, CANT BREATHE, 03/15/20) NIYA GRIFFITH DO Mar 17, 2020 17:02
== END 2020-03-17 15:00 | disposition home health service (06) | DRG 133 ==
LOC: EDBD 09:36 → M ED 09:36 → M ED INP 15:22 → ENRESERV 17:05 → M PCU 17:49
PROVIDERS: ADMIT Internal Medicine; ATTEND Internal Medicine
DX: J96.22 Acute and chronic respiratory failure with hypercapnia (principal); E88.01 Alpha-1-antitrypsin deficiency; J44.1 Chronic obstructive pulmonary disease with (acute) exacerbation; I10 Essential (primary) hypertension; E78.5 Hyperlipidemia, unspecified; Z79.899 Other long term (current) drug therapy; K21.9 Gastro-esophageal reflux disease without esophagitis; K44.9 Diaphragmatic hernia without obstruction or gangrene; M19.90 Unspecified osteoarthritis, unspecified site

== ENCOUNTER → 2020-03-29 | Outpatient (REF) | payer BC ==
[~2020-03-29] MED LIST changes: +ALPR0.25 PO; +AZIT500T5; +BUDE10.2 INH; +COMBAER6 INH; +FLUC100T; +LEVA45AE INH; +LEVO750T13 PO; +METO1TAB32 PO; +PRED10TA2; +VENL75CA47 PO
[2020-03-29 14:02] LABS: BLOOD UREA NITROGEN 13 MG/DL (7-18); CALCIUM LEVEL 9.8 MG/DL (8.8-10.2); CARBON DIOXIDE LEVEL 46 MEQ/L (21-32); CHLORIDE LEVEL 97 MEQ/L (98-107); CREATININE FOR GFR 0.61 MG/DL (0.55-1.30); GLOMERULAR FILTRATION RATE > 60.0 (>45); GLUCOSE, FASTING 143 MG/DL (70-100); POTASSIUM SERUM 4.2 MEQ/L (3.5-5.1); SODIUM LEVEL 142 MEQ/L (136-145); TOTAL 25(OH) VITAMIN D 41.8 NG/ML (30.0-100.0)
== END ==
LOC: M SFHCPLAZ 11:06
PROVIDERS: ATTEND Nurse Practitioner Family
DX: E55.9 Vitamin D deficiency, unspecified (principal); I10 Essential (primary) hypertension

== ENCOUNTER 2020-04-01 11:51 | Inpatient (IN) | payer BC, MEDICARE ==
[~2020-04-01] VITALS: Ht 165.1 cm; Wt 53.5 kg
[~2020-04-01 11:51] MED LIST changes: +VENLAFAXINE **XR** 75MG CAPSULE PO SCH
[2020-04-01] MEDS ORDERED: GI COCKTAIL 50ML BTL(HYOSCYAMINE/MAALOX/LIDOCAINE VISCOUS)(1:3:1) PO ONE (12:15)
[2020-04-01] MEDS ORDERED: dexameTHASONE 20MG/5ML VIAL (J1100 PER 1MG) IV ONE (12:15)
[2020-04-01 13:08] LABS: VENOUS BASE EXCESS 17.7 (-2.0-2.0); VENOUS HCO3 48.9 MEQ/L (23.0-27.0); VENOUS O2 SATURATION 65.8 % (60.0-80.0); VENOUS PARTIAL PRESSURE CO2 97.8 mmHg (38.0-50.0); VENOUS PARTIAL PRESSURE O2 35.6 mmHg (30.0-50.0); VENOUS PH 7.317 UNITS (7.330-7.430); VENOUS STANDARD HCO3 40.9 MEQ/L; VENOUS TOTAL CO2 51.9 MEQ/L (24.0-28.0)
[2020-04-01 13:10] LABS: BASO % 0.2 % (0.0-1.0); EOS % 0.4 % (0.0-3.0); HEMATOCRIT 42.9 % (36.0-47.0); HEMOGLOBIN 12.4 g/dl (12.0-15.5); LYMPH # 0.7 10^3/uL (1.5-5.0); LYMPH % 11.8 % (24.0-44.0); MEAN CORPUSCULAR HEMOGLOBIN 29.1 pg (27.0-33.0); MEAN CORPUSCULAR HGB CONC 28.9 g/dl (32.0-36.5); MEAN CORPUSCULAR VOLUME 100.7 fl (80.0-96.0); MONO # 0.4 10^3/uL (0.0-0.8); MONO % 6.8 % (0.0-5.0); NEUTROPHILS # 4.6 10^3/uL (1.5-8.5); NEUTROPHILS % 80.6 % (36.0-66.0); PLATELET COUNT, AUTOMATED 156 10^3/uL (150-450); RED BLOOD COUNT 4.26 10^6/uL (4.00-5.40); WHITE BLOOD COUNT 5.7 10^3/uL (4.0-10.0)
[2020-04-01 13:28] LABS: INR 0.9; PROTHROMBIN TIME 12.3 SECONDS (12.5-14.3)
[2020-04-01 13:33] LABS: RSV AMPLIFICATION NEGATIVE (NEGATIVE)
[2020-04-01 13:37] LABS: ALBUMIN 3.5 GM/DL (3.2-5.2); ALT/SGPT 21 U/L (12-78); BILIRUBIN,DIRECT 0.1 MG/DL (0.0-0.2); BILIRUBIN,TOTAL 0.4 MG/DL (0.2-1.0); BLOOD UREA NITROGEN 10 MG/DL (7-18); CALCIUM LEVEL 9.3 MG/DL (8.8-10.2); CARBON DIOXIDE LEVEL 45 MEQ/L (21-32); CHLORIDE LEVEL 94 MEQ/L (98-107); CK-MB VALUE MASS 1.6 NG/ML (<3.6); CPK CREATINE PHOSPHOKINASE 55 U/L (26-192); CREATININE FOR GFR 0.46 MG/DL (0.55-1.30); GLOMERULAR FILTRATION RATE > 60.0 (>45); GLUCOSE, FASTING 105 MG/DL (70-100); MB/CK RELATIVE INDEX 2.91 (< OR =4); NT-PRO BNP 165 PG/ML (<125); POTASSIUM SERUM 4.4 MEQ/L (3.5-5.1); SODIUM LEVEL 141 MEQ/L (136-145); THYROXINE (T4) 9.2 UG/DL (4.5-12.0); TOTAL PROTEIN 6.7 GM/DL (6.4-8.2); TROPONIN I < 0.02 NG/ML (< 0.10)
--- NOTE | 2020-04-01 14:01 | REP ---
INDICATION: DYSPNEA/COUGH COMPARISON: 03/15/2020 TECHNIQUE: Portable AP view of the chest FINDINGS: Advanced emphysematous disease with large left-sided bullous changes as scattered chronic fibrosis/scarring (right greater than left) appears similar to prior examination. No acute focal consolidation, obvious effusion, or pneumothorax. Subtle superimposed right basilar atelectasis cannot be excluded and should be correlated with physical examination and auscultation. Mediastinum and cardiac silhouette are stable including innumerable calcified lymph nodes. Skeletal structures are intact.. IMPRESSION: 1. Chronic stable changes. Cannot exclude subtle right basilar atelectasis. <Electronically signed by Chip Wilson > 04/01/20 [id number]
[2020-04-01] MEDS ORDERED: ISOVUE-370 76% 100ML VIAL As Ordered ONE (14:23)
--- NOTE | 2020-04-01 14:49 | REP ---
INDICATION: chest pain- central COMPARISON: 06/29/2010 TECHNIQUE: Axial contrast enhanced images from the thoracic inlet to the upper abdomen using pulmonary embolus technique with multiplanar re-formations. 100 ml Isovue 370 intravenous contrast material administered without complication. This CT examination was performed using the following dose reduction techniques: Automated exposure control, adjustment of mA and/or kv according to the patient's size, and use of iterative reconstruction technique. FINDINGS: Satisfactory enhancement of the pulmonary vasculature is achieved and no filling defects are identified to suggest pulmonary embolus. Further evaluation of the mediastinum demonstrates relatively normal thoracic aorta without aneurysm or dissection. Mild atherosclerotic changes to the thoracic aorta and coronary arteries noted. No cardiomegaly or pericardial effusion. Lung maynard demonstrate advanced COPD/emphysematous disease with significant oligemia and bullous changes (left greater than right). Innumerable small calcified mediastinal and hilar lymph nodes are also identified as well as scattered elements of scarring. Mild superimposed left perihilar and right basilar atelectasis noted. No effusion. No pneumothorax. IMPRESSION: 1. No evidence for pulmonary embolus. 2. Advanced COPD/emphysematous disease. 3. Mild superimposed left perihilar and right basilar atelectasis. <Electronically signed by Chip Wilson > 04/01/20 [id number]
--- NOTE | 2020-04-01 14:54 | REP ---
INDICATION: epigastric pain. COMPARISON: None TECHNIQUE: Axial contrast-enhanced images from the lung bases to the pubic symphysis using 100 cc Isovue 370 intravenous contrast material. Coronal and sagittal reformations obtained. This CT examination was performed using the following dose reduction techniques: Automated exposure control, adjustment of mA and/or kv according to the patient's size, and the use of iterative reconstruction technique. FINDINGS: Hepatic and splenic parenchymal calcifications consistent with prior granulomatous disease. Evidence for prior cholecystectomy. Pancreas, right adrenal gland, and bilateral kidneys are normal. 1.1 cm left adrenal nodule is nonspecific but likely represents atypical adenoma and is stable compared to chest CT dated 2005. The enteric system demonstrates mild/moderate fecal stasis without bowel obstruction or acute inflammatory process. Pelvis demonstrates normal bladder and age-appropriate uterus/adnexa. No ascites. No free air. No adenopathy. Atherosclerotic changes to the aorta and vasculature noted without aneurysm or dissection. Musculoskeletal structures demonstrate age-related degenerative changes without acute osseous abnormality. IMPRESSION: 1. Moderate fecal stasis. 2. Chronic stable changes. No further acute abdominopelvic pathology appreciated. <Electronically signed by Chip Wilson > 04/01/20 [id number]
[2020-04-01 16:06] LABS: ABG BASE EXCESS 13.4 (-2.0-2.0); ABG HCO3 44.1 MEQ/L (22.0-26.0); ABG O2 SATURATION 98.1 % (95.0-99.0); ABG STANDARD HCO3 37.3 MEQ/L (22.0-26.0); ABG TOTAL CO2 46.9 MEQ/L (23.0-31.0); ABG pH (ARTERIAL) 7.308 UNITS (7.350-7.450)
[2020-04-01 16:10] LABS: CK-MB VALUE MASS 2.2 NG/ML (<3.6); CPK CREATINE PHOSPHOKINASE 37 U/L (26-192); MB/CK RELATIVE INDEX 5.95 (< OR =4); TROPONIN I < 0.02 NG/ML (< 0.10)
[2020-04-01] MEDS ORDERED: ALBUTEROL SULFATE 2.5 MG/0.5 ML INH NEB SOLN NEB PRN (17:15)
--- NOTE | 2020-04-01 17:20 | HPEPDOC ---
[facility] Medical History & Physical Date of Admission Apr 01, 2020 Date of Service: Apr 01, 2020 Attending Physician: Yesenia Nix MD History and Physical CHIEF COMPLAINT: shortness of breath HISTORY OF PRESENT ILLNESS: Patient is a 64-year-old female with past medical history of chronic respiratory failure secondary to COPD and also 1 antitrypsin deficiency, hyperlipidemia, depression/anxiety, obstructive sleep apnea who presented to [facility] emergency room after increasing shortness of breath and chest tightness worsening last evening. The patient had a recent admission on 03/15-08/01 for acute on chronic respiratory failure secondary to COPD exacerbation, the patient was discharged in [facility] home at that time. They she returns complaining of similar symptoms that she had during her last admission which include increased shortness of breath beginning suddenly, waking her from sleep. She also has "heartburn" or chest tightness substernally. Chest tightness is described as intermittent, worsened between 310/10 on pain scale. She describes it as sometimes radiating from the abdomen up to the substernal area. No radiation to the neck or down the left arm. Pain is similar to tightness she experienced last admission. The patient states she never really felt improved since her last discharge and has recently went to her primary care physician to be evaluated. At that visit they increased her metoprolol to 50 mg daily due to uncontrolled and also her Nexium to 2 tabs daily. She came to the emergency room today due to symptoms not improved. The patient denies cough, fevers, chills, diarrhea but admits to lethargy, lightheadedness, dizziness occasionally and unsteady gait. The emergency room blood pressure showed to be elevated in the 170s systolic, she was saturating 92% on 6 L nasal cannula (this is her home amount of oxygen) , heart rate 113, respiratory rate was 22. She was given steroids, DuoNeb treatment. She was sent for CT of the chest with contrast and CT abdomen, both of which did not show any acute cardiopulmonary or abdominal pathologies. CBC was unremarkable along with CMP. ABG was done due to history of chronic hypercapnia and worsening shortness of breath. pH 7.308/ pCO2 90/ pO2 109. Patient was awake, alert and oriented with no altered mental state. Emergency room physician discussed with curtain cleaner direct support professional, Dr. Huynh, and together decided against BiPAP at this time. The patient was admitted to ICU for acute on chronic hypercapnic, hypoxic respiratory failure secondary to COPD exacerbation. ROS: neg except what is mentioned above PMH: COPD, EMPHYSEMA WITH ALPHA 1 ANTITRYPSIN DEFICIENCY - PULMONOLOGY, FEV1 = 0.35 ON 06/24/18 ESOPHAGEAL REFLUX, HIATAL HERNIA DEPRESSION SEASONAL ALLERGIES ARTHRITIS HYPERLIPIDEMIA, MIXED OSTEOPENIA SLEEP APNEA HYPERTENSION, ESSENTIAL MIXED HYPERLIPIDEMIA ANXIETY VITAMIN D DEFICIENCY PSORIASIS CHRONIC RESPIRATORY FAILURE WITH HYPOXIA OBSTRUCTIVE SLEEP APNEA PSURGHX: TUBAL LIGATION 1982 CHOLECYSTECTOMY 1992 TUMOR REMOVED FROM RIGHT RING FINGER 1993 FAMILY HISTORY: mother- HTN, DM, uterine cancer. at 50 y/o father- CAD. at 93 y/o SOCIAL HISTORY: Former smoker of 1-2 PPD for 8-10 years. Quit >10 years ago. Denies alcohol or illicit drug use. Lives with locally, uses 6 L O2 ATC normally. 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 Arvizu, last seen in 02/2020. She is a full code. ALLERGIES: Please see below. HOME MEDICATIONS: Please see below. PHYSICAL EXAMINATION: VS: Please see below CONSTITUTIONAL: No acute distress, resting in bed, AAO x 3, slightly anxious EYES: PERRLA, EOM intact HENT, MOUTH: Normocephalic, atraumatic, moist mucous membranes NECK: SUPPLE, no JVD, no lymphadenopathy, no carotid bruit CV: tachycardic, sinus rhythm, S1S2 normal, no murmurs/rubs/gallops RESPIRATORY: Decreased breath sounds bilaterally, no rales/rhonchi/wheezes GI: BS positive in 4 quadrants, soft, nontender, nondistended, no rebound or guarding, no organomegaly : Deferred MUSCULOSKELETAL: Normal ROM. No cyanosis, clubbing, swelling, joint deformity, extremity edema INTEGUMENTARY: Intact, no rashes, no lesions, no erythema NEUROLOGIC: Cranial Nerves II-XII are intact, no focal deficits PSYCHIATRIC: Slightly anxious mood LABORATORY DATA: Please see below MICROBIOLOGY: Resp panel: neg Blood cultures: pending IMAGING: CTA chest: 1. No evidence for pulmonary embolus. 2. Advanced COPD/emphysematous disease. 3. Mild superimposed left perihilar and right basilar atelectasis. CT abd/pelvis: 1. Moderate fecal stasis. 2. Chronic stable changes. No further acute abdominopelvic pathology appreciated. ASSESSMENT: 64-year-old female with past medical history of chronic respiratory failure secondary to COPD and also 1 antitrypsin deficiency, hyperlipidemia, depression/anxiety, obstructive sleep apnea admitted to ICU for acute on chronic hypercapnic, hypoxic respiratory failure secondary to COPD exacerbation. PLAN: Acute on chronic hypercapnic, hypoxic respiratory failure secondary to COPD exacerbation with underlying alpha-1 antitrypsin deficiency -ABG: pH 7.308/ pCO2 90/ pO2 109. No AMS -Chronic hypercapnia with pCO2 60-69, far from baseline. O2 need at 6 L NC is currently baseline. -Denies noncompliance or new symptoms of infection (resp panel neg) -Discussed case with Dr. Huynh, pulmonary. -Starting methylprednisone 60 mg IV q8H, levalbuterol ATC and PRN, levofloxacin, IS Q2hrs while awake, humidified O2 -ABG to be repeated at 2000. If change in mental status--> Bipap (low threshold so will be admitted to ICU to monitor closely) -Pulmonary is not officially consulted but if condition worsens and needing Bipap, Dr. Huynh is available for consult. Uncontrolled HTN -BP systolic 170's in ER. -Recently had BB increased at PCP's -C/w home meds Chest pain/tightness likely 2/2 to acute respiratory failure -ECG: no changes from last -trop x 2 neg, f/u third -C/w treatment above, if third trop set neg, add ACS meds Constipation -Colace and miralax PRN added -Encourage fluid intake, keep jug of water at bedside Difficulty swallowing/oropharyngeal dysfunction -Speech specialist recommended modified diet on last admission, please start that again -Patient will need endoscopy in the outpatient settings Hyperlipidemia -C/w statin KHOLE -May use home CPAP. Patient to call to bring in. Anxiety/depression -C/w home meds but hold if patient is sedate or lethargic DVT px -Lovenox DISPOSITION: Admitted to ICU for close monitoring. Plan is PT/OT when improved resp luevano, then d/c home. TOTAL AMOUNT OF CRITICAL CARE TIME SPENT SEEING PATIENT: 50 mins Vital Signs Vital Signs Date Time Temp Pulse Resp B/P (MAP) Pulse Ox O2 Delivery O2 Flow Rate FiO2 04/01/20 17:01 103 96 04/01/20 17:00 174/96 (122) 04/01/20 12:07 Nasal Cannula 2.0 04/01/20 12:00 98.4 20 Laboratory Data Labs 24H Laboratory Tests 2 04/01/20 12:24: Prothrombin Time 12.3, Prothromb Time International Ratio 0.90, Blood Gas Bicarbonate Standard 40.9, Venous Blood pH 7.317L, Venous Blood Partial Pressure CO2 97.8H, Venous Blood Partial Pressure O2 35.6, Venous Blood Total Carbon Dioxide 51.9H, Venous Blood HCO3 48.9H, Venous Blood Oxygen Saturation 65.8, Venous Blood Base Excess 17.7H, Anion Gap 2L, Glomerular Filtration Rate > 60.0, Calcium Level 9.3, Total Bilirubin 0.4, Direct Bilirubin 0.1, Aspartate Amino Transf (AST/SGOT) 19, Alanine Aminotransferase (ALT/SGPT) 21, Alkaline Phosphatase 116, Total Creatine Kinase 55, Creatine Kinase MB 1.6, Creatine Kinase MB Relative Index 2.91, Troponin I < 0.02, UD-Wgc-P-Type Natriuretic Peptide 165H, Total Protein 6.7, Albumin 3.5, Albumin/Globulin Ratio 1.1L, Thyroid Stimulating Hormone (TSH) 1.430, Thyroxine (T4) 9.2 04/01/20 12:25: Immature Granulocyte % (Auto) 0.2, Neutrophils (%) (Auto) 80.6H, Lymphocytes (%) (Auto) 11.8L, Monocytes (%) (Auto) 6.8H, Eosinophils (%) (Auto) 0.4, Basophils (%) (Auto) 0.2, Neutrophils # (Auto) 4.6, Lymphocytes # (Auto) 0.7L, Monocytes # (Auto) 0.4, Eosinophils # (Auto) 0.0, Basophils # (Auto) 0.0, Nucleated Red Blood Cells % (auto) 0.0, Lactic Acid Level 1.4, Coronavirus (COVID-19)(PCR) NEGATIVE, Influenza Type A (RT-PCR) NEGATIVE, Influenza Type B (RT-PCR) NEGATIVE, Respiratory Syncytial Virus (PCR) NEGATIVE 04/01/20 15:25: Total Creatine Kinase 37, Creatine Kinase MB 2.2, Creatine Kinase MB Relative Index 5.95H, Troponin I < 0.02 04/01/20 15:56: Blood Gas Bicarbonate Standard 37.3H, Arterial Blood pH 7.308L, Arterial Blood Partial Pressure CO2 90.0*H, Arterial Blood Partial Pressure O2 109.0H, Arterial Blood Total CO2 46.9H, Arterial Blood HCO3 44.1H, Arterial Blood Base Excess 1 3.4H, Arterial Blood Oxygen Saturation 98.1 CBC/BMP Laboratory Tests 04/01/20 12:24 04/01/20 12:25 Microbiology Microbiology 04/01/20 Blood Culture, Received Pending 04/01/20 Blood Culture, Received Pending Home Medications Scheduled Alprazolam (Alprazolam) 0.25 Mg Tablet, 0.25 MG PO BID Budesonide/Formoterol Fumarate (Budesonide-Formoterol 160-4.5) 10.2 Gm Hfa.ae r.ad, 2 PUFFS INH BID Ipratropium [place] (Ipratropium [place]) 0.2 Mg/1 Ml Solution, 0.2 MG INH Q4H MIXED WITH XOPENEX Levalbuterol HCl (Levalbuterol HCl) 1.25 Mg/3 Ml Vial.neb, 1.25 MG INH Q4H MIXED WITH IPRATROPIUM Metoprolol Succinate (Metoprolol Succinate) 50 Mg Tab.er.24h, 50 MG PO DAILY Venlafaxine HCl (Venlafaxine HCl ER) 75 Mg Cap.er.24h, 75 MG PO DAILY Allergies Coded Allergies: Sulfa (Sulfonamide Antibiotics) (Verified Allergy, Severe, CANT BREATHE, 04/01/20) prednisone (Verified Adverse Reaction, Mild, SUICIDAL IDEATIONS, 04/01/20) A-FIB/CHADSVASC A-FIB History Current/History of A-Fib/PAF?: No Current PO Anticoag Therapy: No Age/Risk Factor Scoring CHADSVASC: CHADSVASC Response (Comments) Value Gender Risk Factor Female 1 Hx of CHF No 0 Hx of HTN Yes 1 Hx of Stroke/TIA/or VTE No 0 Hx of Diabetes No 0 Hx of Vascular Disease No 0 Total 2 Treatment Treatment ordered: Other Other anticoagulant ordered: Yesenia Bullard MD Apr 01, 2020 17:20
[2020-04-01] MEDS ORDERED: LEVA1.2519 INH (17:52)
[2020-04-01] MEDS ORDERED: IPRA2IN INH (17:52)
[2020-04-01] MEDS ORDERED: METO1TAB7 PO (17:52)
[2020-04-01] MEDS ORDERED: MIRALAX *UNIT DOSE* 17GM PACKET PO PRN (18:15)
[2020-04-01] MEDS ORDERED: LEVALBUTEROL 1.25 MG/0.5 ML CONCENTRATE NEB NEB PRN (18:30)
[2020-04-01] MEDS: LEVALBUTEROL 1.25 MG/0.5 ML CONCENTRATE NEB NEB SCH ×2 (19:23→23:03)
[2020-04-01 19:40] LABS: ABG BASE EXCESS 12.2 (-2.0-2.0); ABG O2 SATURATION 99.2 % (95.0-99.0); ABG PARTIAL PRESSURE CO2 83.1 mmHg (35.0-45.0); ABG PARTIAL PRESSURE O2 164.4 mmHg (75.0-100.0); ABG TOTAL CO2 44.5 MEQ/L (23.0-31.0); ABG pH (ARTERIAL) 7.321 UNITS (7.350-7.450)
[2020-04-01] MEDS: hydrALAZINE 20MG/ML 1ML VIAL (J0360 PER 20MG) IV SCH (19:58)
[2020-04-01] MEDS ORDERED: IPRATROPIUM 0.5MG/ALBUTEROL 2.5MG INH SOL UD 3ML (DUONEB) NEB SCH (20:00)
[2020-04-01] MEDS: methylPREDNISolone 125MG 2ML VIAL IV SCH (20:00)
[2020-04-01] MEDS: LevoFLOXacin IV 750 MG in IV 1 EA IV SCH (20:09)
[2020-04-01] MEDS: CHLORHEXIDINE GLUCONATE 0.12 % 15ML UDC (PERIDEX ORAL RINSE) MT SCH (20:57)
[2020-04-01] MEDS: DOCUSATE SODIUM 100MG CAPSULE PO SCH (20:58)
[2020-04-01] MEDS ORDERED: ALPRAZolam 0.25 MG TAB PO SCH (21:00)
[2020-04-01] MEDS ORDERED: SYMBICORT 160/4.5MCG INHALER 6GM INH SCH (21:00)
[2020-04-01 21:35] VITALS: BP 158/75
[2020-04-01] MEDS ORDERED: IPRATROPIUM HFA INHALER 12.9 GRAMS (ATROVENT HFA) INH PRN (23:00)
[2020-04-02] VITALS (27 sets, daily range): BP systolic 118–189; BP diastolic 59–110; O2SAT 95–96
[2020-04-02] MEDS: methylPREDNISolone 125MG 2ML VIAL IV SCH ×3 (03:30→20:25)
[2020-04-02] MEDS: LEVALBUTEROL 1.25 MG/0.5 ML CONCENTRATE NEB NEB SCH ×6 (03:35→23:24)
[2020-04-02] MEDS ORDERED: IPRATROPIUM 0.02% SOLN 0.5MG 2.5ML NEB INH PRN (04:00)
[2020-04-02] MEDS: hydrALAZINE 20MG/ML 1ML VIAL (J0360 PER 20MG) IV SCH (04:16)
[2020-04-02 04:45] LABS: HEMATOCRIT 44.1 % (36.0-47.0); HEMOGLOBIN 13.4 g/dl (12.0-15.5); MEAN CORPUSCULAR HGB CONC 30.4 g/dl (32.0-36.5); MEAN CORPUSCULAR VOLUME 98.7 fl (80.0-96.0); PLATELET COUNT, AUTOMATED 206 10^3/uL (150-450); RED BLOOD COUNT 4.47 10^6/uL (4.00-5.40); WHITE BLOOD COUNT 5.1 10^3/uL (4.0-10.0)
[2020-04-02 05:04] LABS: ALBUMIN 3.6 GM/DL (3.2-5.2); ALT/SGPT 24 U/L (12-78); BILIRUBIN,TOTAL 0.5 MG/DL (0.2-1.0); BLOOD UREA NITROGEN 14 MG/DL (7-18); CALCIUM LEVEL 9.5 MG/DL (8.8-10.2); CARBON DIOXIDE LEVEL 40 MEQ/L (21-32); CHLORIDE LEVEL 95 MEQ/L (98-107); CREATININE FOR GFR 0.49 MG/DL (0.55-1.30); GLOMERULAR FILTRATION RATE > 60.0 (>45); GLUCOSE, FASTING 119 MG/DL (70-100); SODIUM LEVEL 139 MEQ/L (136-145); TOTAL PROTEIN 7.4 GM/DL (6.4-8.2)
[2020-04-02] MEDS ORDERED: METOPROLOL SUCC (TopROL XL) 50MG **XL** TAB PO ONE (05:15)
[2020-04-02 05:34] LABS: TROPONIN I < 0.02 NG/ML (< 0.10)
[2020-04-02 06:05] LABS: ABG BASE EXCESS 9.2 (-2.0-2.0); ABG HCO3 37.8 MEQ/L (22.0-26.0); ABG O2 SATURATION 97.9 % (95.0-99.0); ABG PARTIAL PRESSURE O2 102.1 mmHg (75.0-100.0); ABG pH (ARTERIAL) 7.344 UNITS (7.350-7.450)
[2020-04-02] MEDS: SYMBICORT 160/4.5MCG INHALER 6GM INH SCH ×2 (08:58→20:22)
[2020-04-02] MEDS: DOCUSATE SODIUM 100MG CAPSULE PO SCH ×2 (09:00→20:25)
[2020-04-02] MEDS: PANTOPRAZOLE 40MG TAB (PROTONIX) PO SCH (09:00)
[2020-04-02] MEDS: NS 1,000 ML IV SCH ×2 (09:44→22:41)
[2020-04-02] MEDS: ONDANSETRON 4MG/2ML VIAL IV PRN (09:44)
[2020-04-02] MEDS: CHLORHEXIDINE GLUCONATE 0.12 % 15ML UDC (PERIDEX ORAL RINSE) MT SCH ×2 (09:45→20:25)
[2020-04-02] MEDS: ENOXAPARIN 40MG/0.4ML SYRINGE (J1650 PER 10MG) SC SCH (09:45)
[2020-04-02 10:57] LABS: VENOUS BASE EXCESS 11.9 (-2.0-2.0); VENOUS HCO3 42.2 MEQ/L (23.0-27.0); VENOUS O2 SATURATION 98.7 % (60.0-80.0); VENOUS PARTIAL PRESSURE CO2 85.9 mmHg (38.0-50.0); VENOUS PARTIAL PRESSURE O2 137.6 mmHg (30.0-50.0); VENOUS PH 7.309 UNITS (7.330-7.430); VENOUS STANDARD HCO3 35.7 MEQ/L; VENOUS TOTAL CO2 44.8 MEQ/L (24.0-28.0)
--- NOTE | 2020-04-02 11:37 | IPNPDOC ---
Date Seen The patient was seen on 04/02/20. Progress Note SUBJECTIVE: ABG's improved overnight, did not require Bipap. Difficulty swallowing meds, feels as though something is "stuck in throat". History of worsening dysphagia per patient, swallowing eval ordered for 04/03/20, made NPO. Repeat ABG pending. Patient states she feels slightly improved breathing, denies chest pain, n/v/d, fevers, chills. OBJECTIVE: PHYSICAL EXAMINATION: VS: Please see below CONSTITUTIONAL: No acute distress, resting in bed, AAO x 3 EYES: PERRLA, EOM intact HENT, MOUTH: Normocephalic, atraumatic, moist mucous membranes NECK: SUPPLE, no JVD, no lymphadenopathy, no carotid bruit CV: tachycardic, sinus rhythm, S1S2 normal, no murmurs/rubs/gallops RESPIRATORY: Decreased breath sounds bilaterally, no rales/rhonchi/wheezes GI: BS positive in 4 quadrants, soft, nontender, nondistended, no rebound or guarding, no organomegaly : Deferred MUSCULOSKELETAL: Normal ROM. No cyanosis, clubbing, swelling, joint deformity, extremity edema INTEGUMENTARY: Intact, no rashes, no lesions, no erythema NEUROLOGIC: Cranial Nerves II-XII are intact, no focal deficits PSYCHIATRIC: mood and affect appropriate LABORATORY DATA: Please see below MICROBIOLOGY: Resp panel: neg Blood cultures: pending IMAGING: CTA chest: 1. No evidence for pulmonary embolus. 2. Advanced COPD/emphysematous disease. 3. Mild superimposed left perihilar and right basilar atelectasis. CT abd/pelvis: 1. Moderate fecal stasis. 2. Chronic stable changes. No further acute abdominopelvic pathology appreciated. ASSESSMENT: 64-year-old female with past medical history of chronic respiratory failure secondary to COPD and also 1 antitrypsin deficiency, hyperlipidemia, depression/anxiety, obstructive sleep apnea admitted to ICU for acute on chronic hypercapnic, hypoxic respiratory failure secondary to COPD exacerbation. PLAN: Acute on chronic hypercapnic, hypoxic respiratory failure secondary to COPD exacerbation with underlying alpha-1 antitrypsin deficiency -ABG's improving overnight -Chronic hypercapnia with pCO2 60-69, far from baseline. O2 need at 6 L NC is currently baseline. -Denies noncompliance or new symptoms of infection (resp panel neg) -Discussed case with Dr. Huynh, pulmonary. -C/w methylprednisone 60 mg IV q8H, levalbuterol ATC and PRN, levofloxacin, IS Q2hrs while awake, humidified O2 -ABG to be repeated in AM. If change in mental status--> Bipap (low threshold) -Pulmonary is not officially consulted but has seen patient. If condition worsens and needing Bipap, Dr. Huynh is available for consult. Dysphagia -Patient has not been compliant with modified diet at home -States this has worsened since discharge, complains of something being "stuck in throat" here -S/S eval for 04/03/20, was told previously that she would need endoscopy o/p -NPO, IVFs at 75 cc/hr Uncontrolled HTN -BP 120-160's -Recently had BB increased at PCP's -Holding BB due to NPO status -Hydralazine PRN Chest pain/tightness likely 2/2 to acute respiratory failure -Improved with improvement of breathing -ECG: no changes from last -trop x 3 -C/w treatment above Constipation -Colace and miralax PRN stopped with NPO status -Hydrating gently on NPO status Hyperlipidemia -Holding statin KHLOE -May use home CPAP. Anxiety/depression -Per pharmacy, converted Po xanax to IV ativan -Currently stable -Hold meds but hold if patient is sedate or lethargic DVT px -Lovenox DISPOSITION: Admitted to ICU for close monitoring. Plan is PT/OT when improved resp luevano, then d/c home. TOTAL AMOUNT OF CRITICAL CARE TIME SPENT SEEING PATIENT: 40 mins VS, I&O, 24H, Des Vital Signs/I&O Vital Signs Date Time Temp Pulse Resp B/P (MAP) Pulse Ox O2 Delivery O2 Flow Rate FiO2 04/02/20 11:00 112 123/63 (83) 93 Nasal Cannula 4.0 04/02/20 09:00 24 04/02/20 08:00 98.0 I&O- Last 24 Hours up to 6 AM 04/02/20 06:00 Intake Total 300 ml Output Total 275 ml Balance 25 ml Laboratory Data 24H LABS Laboratory Tests 2 04/01/20 12:24: Prothrombin Time 12.3, Prothromb Time International Ratio 0.90, Blood Gas Bicarbonate Standard 40.9, Venous Blood pH 7.317L, Venous Blood Partial Pressure CO2 97.8H, Venous Blood Partial Pressure O2 35.6, Venous Blood Total Carbon Dioxide 51.9H, Venous Blood HCO3 48.9H, Venous Blood Oxygen Saturation 65.8, Venous Blood Base Excess 17.7H, Anion Gap 2L, Glomerular Filtration Rate > 60.0, Calcium Level 9.3, Total Bilirubin 0.4, Direct Bilirubin 0.1, Aspartate Amino Transf (AST/SGOT) 19, Alanine Aminotransferase (ALT/SGPT) 21, Alkaline Phosphatase 116, Total Creatine Kinase 55, Creatine Kinase MB 1.6, Creatine Kinase MB Relative Index 2.91, Troponin I < 0.02, DB-Tbn-Y-Type Natriuretic Peptide 165H, Total Protein 6.7, Albumin 3.5, Albumin/Globulin Ratio 1.1L, Thyroid Stimulating Hormone (TSH) 1.430, Thyroxine (T4) 9.2 04/01/20 12:25: Immature Granulocyte % (Auto) 0.2, Neutrophils (%) (Auto) 80.6H, Lymphocytes (%) (Auto) 11.8L, Monocytes (%) (Auto) 6.8H, Eosinophils (%) (Auto) 0.4, Basophils (%) (Auto) 0.2, Neutrophils # (Auto) 4.6, Lymphocytes # (Auto) 0.7L, Monocytes # (Auto) 0.4, Eosinophils # (Auto) 0.0, Basophils # (Auto) 0.0, Nucleated Red Blood Cells % (auto) 0.0, Lactic Acid Level 1.4, Coronavirus (COVID-19)(PCR) NEGATIVE, Influenza Type A (RT-PCR) NEGATIVE, Influenza Type B (RT-PCR) NEGATIVE, Respiratory Syncytial Virus (PCR) NEGATIVE 04/01/20 15:25: Total Creatine Kinase 37, Creatine Kinase MB 2.2, Creatine Kinase MB Relative Index 5.95H, Troponin I < 0.02 04/01/20 15:56: Blood Gas Bicarbonate Standard 37.3H, Arterial Blood pH 7.308L, Arterial Blood Partial Pressure CO2 90.0*H, Arterial Blood Partial Pressure O2 109.0H, Arterial Blood Total CO2 46.9H, Arterial Blood HCO3 44.1H, Arterial Blood Base Excess 13.4H, Arterial Blood Oxygen Saturation 98.1 04/01/20 19:34: Blood Gas Bicarbonate Standard 36.0H, Arterial Blood pH 7.321L, Arterial Blood Partial Pressure CO2 83.1*H, Arterial Blood Partial Pressure O2 164.4H, Arterial Blood Total CO2 44.5H, Arterial Blood HCO3 42.0H, Arterial Blood Base Excess 12.2H, Arterial Blood Oxygen Saturation 99.2H 04/01/20 19:52: Troponin I < 0.02 04/02/20 04:32: Troponin I < 0.02, Nucleated Red Blood Cells % (auto) 0.0, Anion Gap 4L, Glomerular Filtration Rate > 60.0, Calcium Level 9.5, Total Bilirubin 0.5, Aspartate Amino Transf (AST/SGOT) 27, Alanine Aminotransferase (ALT/SGPT) 24, Alkaline Phosphatase 122H, Total Protein 7.4, Albumin 3.6, Albumin/Globulin Ratio 0.9L 04/02/20 05:56: Blood Gas Bicarbonate Standard 33.0H, Arterial Blood pH 7.344L, Arterial Blood Partial Pressure CO2 71.0*H, Arterial Blood Partial Pressure O2 102.1H, Arterial Blood Total CO2 40.0H, Arterial Blood HCO3 37.8H, Arterial Blood Base Excess 9.2H, Arterial Blood Oxygen Saturation 97.9 04/02/20 10:44: Blood Gas Bicarbonate Standard 35.7, Venous Blood pH 7.309L, Venous Blood Partial Pressure CO2 85.9H, Venous Blood Partial Pressure O2 137.6H, Venous Blood Total Carbon Dioxide 44.8H, Venous Blood HCO3 42.2H, Venous Blood Oxygen Saturation 98.7H, Venous Blood Base Excess 11.9H CBC/BMP Laboratory Tests 04/01/20 12:24 04/01/20 12:25 04/02/20 04:32 Microbiology Microbiology 04/01/20 Blood Culture, Received Pending 04/01/20 Blood Culture, Received Pending Current Medications Current Medications Medications (Trade) Dose Ordered Sig/Too Route PRN Reason Start Time Stop Time Status Last Admin Dose Admin Albuterol Sulfate (Proventil Neb) 2.5 mg Q2HP PRN NEB SHORTNESS OF BREATH 04/01/20 17:15 04/01/20 18:21 DC Albuterol/ Ipratropium (Duoneb (Ipr 0.5mg/Alb 2.5mg)) 3 ml RQID NEB 04/01/20 20:00 04/01/20 18:21 DC Alprazolam (Xanax) 0.25 mg BID PO 04/01/20 21:00 04/02/20 08:58 DC 04/01/20 20:07 Budesonide/ Formoterol Fumarate (Symbicort 160/ 4.5mcg) 2 puff BID INH 04/01/20 21:00 04/01/20 23:33 DC Budesonide/ Formoterol Fumarate (Symbicort 160/ 4.5mcg) 2 puff RBID INH 04/02/20 08:00 04/02/20 08:58 Chlorhexidine Gluconate (Peridex Oral Rinse) SWAB/BRUSH ORAL CAVITY BID MT 04/01/20 21:00 04/02/20 09:45 Docusate Sodium (Colace) 100 mg BID PO 04/01/20 21:00 Enoxaparin Sodium (Lovenox) 40 mg DAILY SC 04/02/20 09:00 04/02/20 09:45 Home Med (Med Rec Complete!) ASDIRECTED XX 04/01/20 18:00 04/01/20 18:07 DC Hydralazine HCl (Apresoline) 10 mg Q8H IV 04/01/20 20:00 04/02/20 08:58 DC 04/02/20 04:16 Hydralazine HCl (Apresoline) 10 mg Q8H PRN IV SEE PROTOCOL 04/02/20 09:00 Ipratropium [place] (Atrovent 0.02%) 0.5 mg Q4HP PRN INH DYSPNEA 04/02/20 04:00 04/02/20 03:35 Ipratropium [place] (Atrovent Hfa) 2 puff Q6HP PRN INH SHORTNESS OF BREATH 04/01/20 23:00 04/02/20 00:24 DC Levalbuterol HCl (Xopenex Neb) 1.25 mg Q2HP PRN NEB SOB/WHEEZING 04/01/20 18:30 04/01/20 21:06 Levalbuterol HCl (Xopenex Neb) 1.25 mg Q4H NEB 04/01/20 18:30 04/01/20 23:32 DC 04/01/20 23:03 Levalbuterol HCl (Xopenex Neb) 1.25 mg RQ4H NEB 04/02/20 04:00 04/02/20 09:02 Levofloxacin 750 mg/IV Miscellaneous Supplies 150 ml @ 100 mls/hr Q24H IV 04/01/20 20:00 04/01/20 20:09 Methylprednisolone (SOLUmedrol) 60 mg Q8H IV 04/01/20 20:00 04/02/20 03:30 Metoprolol Succinate (TopROL XL) 50 mg DAILY PO 04/02/20 09:00 Hold Ondansetron HCl (ZOFRAN INJection) 4 mg Q6HP PRN IV NAUSEA OR VOMITING 04/02/20 09:00 04/02/20 09:44 Polyethylene Glycol (Miralax) 1 pkt DAILYPRN PRN PO CONSTIPATION 04/01/20 18:15 Sodium Chloride 1,000 ml @ 75 mls/hr [id number] IV 04/02/20 09:00 04/02/20 09:44 Venlafaxine HCl (Effexor Xr) 75 mg DAILY PO 04/01/20 09:00 04/02/20 08:58 DC Allergies Coded Allergies: Sulfa (Sulfonamide Antibiotics) (Verified Allergy, Severe, CANT BREATHE, 04/01/20) prednisone (Verified Adverse Reaction, Mild, SUICIDAL IDEATIONS, 04/01/20) Yesenia Nix MD Apr 02, 2020 11:37
[2020-04-02 12:07] LABS: ABG BASE EXCESS 9.5 (-2.0-2.0); ABG HCO3 38.1 MEQ/L (22.0-26.0); ABG O2 SATURATION 88.8 % (95.0-99.0); ABG PARTIAL PRESSURE O2 59.6 mmHg (75.0-100.0); ABG TOTAL CO2 40.4 MEQ/L (23.0-31.0); ABG pH (ARTERIAL) 7.339 UNITS (7.350-7.450)
[2020-04-02 12:10] LABS: ABG PARTIAL PRESSURE CO2 72.5 mmHg (35.0-45.0)
--- NOTE | 2020-04-02 12:22 | ECGEPIP ---
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
--- NOTE | 2020-04-02 12:23 | ECGEPIP ---
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
[2020-04-02] MEDS: TIOTROPIUM INHALER/CAPSULE (SPIRIVA) INH SCH (13:45)
[2020-04-02] MEDS: LevoFLOXacin IV 750 MG in IV 1 EA IV SCH (20:25)
--- NOTE | 2020-04-02 21:15 | CCN ---
CRITICAL CARE NOTE DATE: 04/02/2020 Critical care time is 55 minutes, this excludes all procedures. SUBJECTIVE: I was requested to see Grazyna because of hypoxia and hypercarbic respiratory failure. Grazyna is a 64-year-old female with old stage IV emphysema, Alpha I antitrypsin deficiency followed by my partner Dr. Arvizu. The patient was initially seen in the emergency room for difficulty swallowing. She was admitted because of some shortness of breath and findings of hypercarbic respiratory failure with therapy for chronic obstructive pulmonary disease (COPD) including Solu-Medrol. The patient's arterial blood gas slowly improved. Her mentation stayed adequate and she was doing well on 4 liters. This morning she states she felt tired, wanted to go to sleep after being up all night and wanted to convert to her CPAP. After converting to her CPAP with oxygen brought in, she desaturated to 86%. When she was switched back to her nasal canula, she does not desaturate, even with sleep. Therefore, I have instructed them to continue with oxygen alone and will continue to monitor for signs of hypoxia, hypercapnia. The patient feels well except for her inability to swallow. She has no chest pain and no lower extremity edema. No calf pain. No productive cough. She is compliant with the use of Symbicort at home, using Combivent. She states she believes she tried Spiriva in the past, but she is willing to try it again. PHYSICAL EXAMINATION: Temperature is 98.0, pulse is 112 sinus tachycardia, respiratory rate is 24, blood pressure is 123/63 with a mean arterial pressure of 83, oxygen saturation is 93% on 4.0 liters. General: Awake, alert and oriented, minimal respiratory distress. HEENT: Sclerae clear and anicteric. Pupils are 4 mm bilaterally and reactive to light. Mucus membranes are moist without lesions. Oropharynx without erythema or exudate. Neck is supple. No tracheal deviation or mass. Lymph: No cervical, supraclavicular, axillary lymphadenopathy. Cardiac: S1, S2 without audible murmur, rub or gallop and is tachycardic. PMI is nondisplaced. No lower extremity edema. Pulmonary: Decreased breath sounds throughout without rales, rhonchi or wheezes. No dullness to percussion. There is prolongation in the expiratory phase. Abdomen is soft, nontender, non-distended, no hepatosplenomegaly. No masses or hernias. Extremities: No clubbing, cyanosis or edema. Skin: No rashes, jaundice or bruising. Musculoskeletal: Frail with some muscle wasting. No evidence of joint effusion or trauma, LABORATORY EVALUATION: Shows white blood cell count of 5.1, hemoglobin 13.4, hematocrit of 44.1, platelet count of 206. Sodium is 139, potassium is 4.0, chloride is 95, bicarbonate 40, BUN of 14, creatinine of 0.49. Initial blood gas: pH was 7.31, pCO2 of 90 and pO2 of 109. Without any intervention this morning, arterial blood gas showed a pH of 7.34, pCO2 of 71, pAO2 of 102. Repeat at 11:56 shows no significant change in the pCO2, but decline in the pAO2 as her oxygen was decreased, pAO2 was 59.6. Chest CT angiogram was reviewed from 04/01/2020, shows no evidence of pulmonary embolism. Does show severe pulmonary emphysema without alveolar markings and especially in the left upper lobe. IMPRESSION: 1. Acute on chronic hypercarbic hypoxic respiratory failure. At this point in time, the patient is doing better on nasal canula; therefore, will leave her on this. I tried to decrease the amount of oxygen to prevent hypercarbia as much as possible. Goal oxygen saturation 88% to 92%. 2. Chronic emphysema. Agree with initiating Solu-Medrol; however, would taper quickly. There is no evidence of bacterial pneumonia and chest CT does not suggest any acute infection. 3. Obstructive sleep apnea. At this point in time, her CPAP is either causing increased air trapping or it is not functioning correctly if she desaturates when this is applied. Therefore, she actually does better simply on nasal cannula. We will continue to monitor her closely in the ICU, convert to pressure therapy if needed with the hospital equipment. 4. Deep venous thrombosis (DVT) prophylaxis on Lovenox. 5. Gastrointestinal prophylaxis. Will place on Protonix as she is currently on Solu-Medrol. Thank you for this consultation.
[2020-04-02] MEDS ORDERED: LORazepam 2 MG/ML VIAL As Ordered ONE (23:38)
[2020-04-02] MEDS ORDERED: LORazepam 2 MG/ML VIAL IV ONE (23:45)
[2020-04-03] VITALS (15 sets, daily range): BP systolic 119–198; BP diastolic 65–104
[2020-04-03] MEDS: LEVALBUTEROL 1.25 MG/0.5 ML CONCENTRATE NEB NEB SCH ×6 (04:00→23:11)
[2020-04-03] MEDS: methylPREDNISolone 125MG 2ML VIAL IV SCH ×3 (04:06→20:30)
[2020-04-03 04:38] LABS: HEMATOCRIT 43.5 % (36.0-47.0); HEMOGLOBIN 12.8 g/dl (12.0-15.5); MEAN CORPUSCULAR HEMOGLOBIN 29.2 pg (27.0-33.0); MEAN CORPUSCULAR HGB CONC 29.4 g/dl (32.0-36.5); MEAN CORPUSCULAR VOLUME 99.1 fl (80.0-96.0); PLATELET COUNT, AUTOMATED 169 10^3/uL (150-450); RED BLOOD COUNT 4.39 10^6/uL (4.00-5.40); WHITE BLOOD COUNT 5.4 10^3/uL (4.0-10.0)
[2020-04-03 05:16] LABS: ALBUMIN 3.3 GM/DL (3.2-5.2); ALT/SGPT 31 U/L (12-78); BILIRUBIN,TOTAL 0.4 MG/DL (0.2-1.0); BLOOD UREA NITROGEN 25 MG/DL (7-18); CALCIUM LEVEL 9.1 MG/DL (8.8-10.2); CARBON DIOXIDE LEVEL 39 MEQ/L (21-32); CHLORIDE LEVEL 100 MEQ/L (98-107); CREATININE FOR GFR 0.39 MG/DL (0.55-1.30); GLOMERULAR FILTRATION RATE > 60.0 (>45); GLUCOSE, FASTING 106 MG/DL (70-100); POTASSIUM SERUM 5.6 MEQ/L (3.5-5.1); SODIUM LEVEL 141 MEQ/L (136-145); TOTAL PROTEIN 6.4 GM/DL (6.4-8.2)
[2020-04-03] MEDS ORDERED: DEXTROSE 50% 50 ML SYRINGE IV STA ×2 (07:30→07:34)
[2020-04-03] MEDS ORDERED: HumuLIN R (REGULAR) INSULIN (NovoLIN R) **100U/ML** PER UNIT IV STA (07:30)
[2020-04-03] MEDS: ONDANSETRON 4MG/2ML VIAL IV PRN (07:47)
[2020-04-03] MEDS: TIOTROPIUM INHALER/CAPSULE (SPIRIVA) INH SCH (08:00)
[2020-04-03] MEDS: SYMBICORT 160/4.5MCG INHALER 6GM INH SCH ×2 (08:08→19:26)
--- NOTE | 2020-04-03 08:23 | ECGEPIP ---
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
[2020-04-03 08:50] LABS: ABG BASE EXCESS 12.9 (-2.0-2.0); ABG HCO3 43.4 MEQ/L (22.0-26.0); ABG O2 SATURATION 95.7 % (95.0-99.0); ABG PARTIAL PRESSURE O2 87.2 mmHg (75.0-100.0); ABG STANDARD HCO3 36.6 MEQ/L (22.0-26.0); ABG TOTAL CO2 46.1 MEQ/L (23.0-31.0); ABG pH (ARTERIAL) 7.309 UNITS (7.350-7.450)
[2020-04-03 08:52] LABS: BLOOD UREA NITROGEN 24 MG/DL (7-18); CALCIUM LEVEL 9.4 MG/DL (8.8-10.2); CARBON DIOXIDE LEVEL 43 MEQ/L (21-32); CHLORIDE LEVEL 97 MEQ/L (98-107); CREATININE FOR GFR 0.52 MG/DL (0.55-1.30); GLOMERULAR FILTRATION RATE > 60.0 (>45); GLUCOSE, FASTING 134 MG/DL (70-100); POTASSIUM SERUM 5.1 MEQ/L (3.5-5.1); SODIUM LEVEL 140 MEQ/L (136-145)
[2020-04-03 08:53] LABS: ABG PARTIAL PRESSURE CO2 88.3 mmHg (35.0-45.0)
[2020-04-03] MEDS: DOCUSATE SODIUM 100MG CAPSULE PO SCH ×3 (09:00→20:30)
[2020-04-03] MEDS: PANTOPRAZOLE 40MG TAB (PROTONIX) PO SCH (10:31)
[2020-04-03] MEDS: METOPROLOL SUCC (TopROL XL) 50MG **XL** TAB PO SCH (10:32)
[2020-04-03] MEDS: ENOXAPARIN 40MG/0.4ML SYRINGE (J1650 PER 10MG) SC SCH (10:32)
[2020-04-03] MEDS: CHLORHEXIDINE GLUCONATE 0.12 % 15ML UDC (PERIDEX ORAL RINSE) MT SCH ×2 (10:38→20:30)
--- NOTE | 2020-04-03 11:04 | REP ---
INDICATION: resp failure COMPARISON: 04/01/2020 TECHNIQUE: Portable AP view of the chest FINDINGS: The mediastinum and cardiac silhouette are stable and within normal limits for portable technique. The lung maynard again demonstrate stable advanced emphysematous disease with large left upper lobe bulla and diffuse chronic interstitial changes. Previously suggested right lower lobe infiltrate/atelectasis appears improved/resolved. No acute consolidation or obvious effusion. No pneumothorax. Skeletal structures intact. IMPRESSION: 1. Stable chronic COPD/emphysematous disease and scattered scarring. 2. Previously suggested right lower lobe atelectasis/infiltrate resolved. 3. No new acute process. <Electronically signed by Chip Wilson > 04/03/20 1100
--- NOTE | 2020-04-03 11:14 | CCN ---
CRITICAL CARE NOTE DATE: 04/03/2020 SUPERVISING PHYSICIAN: Dr. Jah Huynh. SUBJECTIVE: Ms. Esquivel was seen in the ICU. She is being followed for hypoxic and hypercarbic respiratory failure. She does have emphysema and obstructive sleep apnea. She has been on Bi-PAP 03/21 but does continue to have oxygen desaturations into the 70s. She does seem to improve when she is changed to oxygen by nasal cannula at 2 liters where she will sat in the mid 90s. Patient reports that overall she is feeling about the same. She denies any new issues and states her breathing is about baseline to where it has been. She denies any fevers or chills. OBJECTIVE: Vitals: Temperature 98.2, pulse 127, respiratory rate 22, blood pressure 142/74, pulse ox currently 95% on 2 liters by nasal cannula. General: Patient is alert and oriented. Mood and affect appropriate. She speaks in complete sentences. HEENT: Head is normocephalic/atraumatic. Moist mucous membranes. Tongue is midline. Neck: Neck is supple. No cervical lymphadenopathy. No JVD. Trachea is midline. Chest: Clear to auscultation bilaterally. No wheezes, rales, rhonchi, or crackles. Heart: Tachycardia. No murmurs. Abdomen; Positive bowel sounds. Soft, nontender. No rebound or guarding. Extremities: No clubbing, cyanosis, or edema. Skin: Skin is warm and dry. Neurologic: Nonfocal. LABORATORY DATA: ABG: pH 7.31, pCO2 88.3, pO2 87.2. WBC 5.4, hemoglobin 12.8, hematocrit 43.5, platelets 169. Sodium 140, potassium 5.1, chloride 97, carbon dioxide 43, BUN 24, creatinine 0.52, glucose 134, calcium 9.4. ASSESSMENT AND PLAN: 1. Acute on chronic hypoxic and hypercarbic respiratory failure. Patient does appear to be doing better with supplemental oxygen via nasal cannula as her oxygen saturations are staying in the mid to low 90s with 2 liters of supplemental oxygen via nasal cannula. She does tend to desat when she is on the Bi-PAP. It is unclear exactly why this is happening. We will continue to monitor this, and for now she will continue on supplemental oxygen via nasal cannula at 2 liters. We will obtain a chest x-ray today. 2. Chronic emphysema. Patient is on Solu-Medrol. She is also getting Xopenex and Atrovent nebs. She is on Symbicort and Spiriva. 3. Obstructive sleep apnea. As noted above, patient has been desaturating on the Bi-PAP possibly because of increased air trapping. We will continue to monitor this and may need to make some adjustments to the patient's Bi-PAP. 4. DVT prophylaxis. Patient remains on Lovenox. 5. Gastrointestinal prophylaxis. Patient remains on Protonix. TOTAL CRITICAL CARE TIME: 63 minutes. This excludes all procedures. MTDD
[2020-04-03] MEDS: NS 1,000 ML IV SCH (12:02)
--- NOTE | 2020-04-03 12:08 | IPNPDOC ---
Date Seen The patient was seen on 04/03/20. Progress Note SUBJECTIVE: ABG showed continued resp acidosis, desat with home bipap. Keeping on NC for now. Esophagram ordered for 04/04/20. C/w NPO status. Appears tired this AM, more tachypneic and anxious. Denies chest pain, n/v/d, fevers, chills. OBJECTIVE: PHYSICAL EXAMINATION: VS: Please see below CONSTITUTIONAL: Appears uncomfortable, AAO x 3 EYES: PERRLA, EOM intact HENT, MOUTH: Normocephalic, atraumatic, moist mucous membranes, nasal cannula in place NECK: SUPPLE, no JVD, no lymphadenopathy, no carotid bruit CV: tachycardic, sinus rhythm, S1S2 normal, no murmurs/rubs/gallops RESPIRATORY: Decreased breath sounds bilaterally, no rales/rhonchi/wheezes GI: BS positive in 4 quadrants, soft, nontender, nondistended, no rebound or guarding, no organomegaly : Deferred MUSCULOSKELETAL: Normal ROM. No cyanosis, clubbing, swelling, joint deformity, extremity edema INTEGUMENTARY: Intact, no rashes, no lesions, no erythema NEUROLOGIC: Cranial Nerves II-XII are intact, no focal deficits LABORATORY DATA: Please see below MICROBIOLOGY: Resp panel: neg Blood cultures: NG at 24 hours IMAGING: CXR 04/03/20: 1. Stable chronic COPD/emphysematous disease and scattered scarring. 2. Previously suggested right lower lobe atelectasis/infiltrate resolved. 3. No new acute process. CTA chest: 1. No evidence for pulmonary embolus. 2. Advanced COPD/emphysematous disease. 3. Mild superimposed left perihilar and right basilar atelectasis. CT abd/pelvis: 1. Moderate fecal stasis. 2. Chronic stable changes. No further acute abdominopelvic pathology ap preciated. ASSESSMENT: 64-year-old female with past medical history of chronic respiratory failure secondary to COPD and also 1 antitrypsin deficiency, hyperlipidemia, depression/anxiety, obstructive sleep apnea admitted to ICU for acute on chronic hypercapnic, hypoxic respiratory failure secondary to COPD exacerbation. PLAN: Acute on chronic hypercapnic, hypoxic respiratory failure secondary to COPD exacerbation with underlying alpha-1 antitrypsin deficiency -ABG this AM: pH 7.309 / pCO2 88.3 / pHCO3 87.2 / O2 sat 95.7- incr pCO2 -CXR this AM above, not worsened -Chronic hypercapnia with pCO2 60-69 at baseline. O2 need at baseline- 6 L NC -Denies noncompliance or new symptoms of infection (resp panel neg) -C/w methylprednisone 60 mg IV q8H, levalbuterol ATC and PRN, levofloxacin, IS Q2hrs while awake, humidified O2 -ABG PRN -Pulmonary following. KHLOE with desaturations with Bipap use -Possbily 2/2 to air trapping -Holding off on Bipap for now but will need to decide when we will rechecking ABG, if/when we restart BIpap will pressures need to be readjusted. -Will touch base with Dr. Huynh regarding plan Dysphagia -Patient has not been compliant with modified diet at home -States this has worsened since discharge, complains of something being "stuck in throat" here -S/S recommend esophogram, ordered for 04/04/20, pureed diet with thickened liquids -C/w modified diet. If does well with diet can d/c IVFs at 75 cc/hr, if not then continue Tachycardia poss 2/2 to respiratory issue above vs. incr anxiety -CTA neg for PE, no suspicious for infection, not dehydrated -Continue to monitor, may benefit from extra dose of lopressor or ativan -Tele HTN -BP better controlled -Recently had BB increased at PCP's -Holding BB due to NPO status -Hydralazine PRN Constipation -Colace and miralax PRN stopped with NPO status -Hydrating gently on NPO status Hyperlipidemia -C/w statin Anxiety/depression -Per pharmacy, converted Po xanax to IV ativan -Currently stable -C/w venlafaxine DVT px -Lovenox Resolved: Chest pain/tightness likely 2/2 to acute respiratory failure- DISPOSITION: Admitted to ICU for close monitoring. Plan is PT/OT when improved resp luevano, then d/c home. TOTAL AMOUNT OF CRITICAL CARE TIME SPENT SEEING PATIENT: 40 mins VS, I&O, 24H, Fishbone Vital Signs/I&O Vital Signs Date Time Temp Pulse Resp B/P (MAP) Pulse Ox O2 Delivery O2 Flow Rate FiO2 04/03/20 11:12 117 04/03/20 10:32 148/76 12/21/20 10:17 22 87 Nasal Cannula 2.0 04/03/20 00:00 98.2 I&O- Last 24 Hours up to 6 AM 04/03/20 06:00 Intake Total 2025 ml Output Total 1000 ml Balance 1025 ml Laboratory Data 24H LABS Laboratory Tests 2 04/02/20 11:56: Blood Gas Bicarbonate Standard 33.0H, Arterial Blood pH 7.339L, Arterial Blood Partial Pressure CO2 72.5*H, Arterial Blood Partial Pressure O2 59.6L, Arterial Blood Total CO2 40.4H, Arterial Blood HCO3 38.1H, Arterial Blood Base Excess 9.5H, Arterial Blood Oxygen Saturation 88.8L 04/03/20 04:26: Nucleated Red Blood Cells % (auto) 0.0, Anion Gap 2L, Glomerular Filtration Rate > 60.0, Calcium Level 9.1, Total Bilirubin 0.4, Aspartate Amino Transf (AST/SGOT) 49H, Alanine Aminotransferase (ALT/SGPT) 31, Alkaline Phosphatase 101, Total Protein 6.4, Albumin 3.3, Albumin/Globulin Ratio 1.1L 04/03/20 07:48: Blood Gas Bicarbonate Standard 36.6H, Arterial Blood pH 7.309L, Arterial Blood Partial Pressure CO2 88.3*H, Arterial Blood Partial Pressure O2 87.2, Arterial Blood Total CO2 46.1H, Arterial Blood HCO3 43.4H, Arterial Blood Base Excess 12.9H, Arterial Blood Oxygen Saturation 95.7 04/03/20 07:50: Bedside Glucose (Misc Panel) 108 04/03/20 08:16: Anion Gap 0L, Glomerular Filtration Rate > 60.0, Calcium Level 9.4 CBC/BMP Laboratory Tests 04/03/20 04:26 04/03/20 08:16 Microbiology Microbiology 04/01/20 Blood Culture - Preliminary, Resulted No growth after 24 hours . All specim... 04/01/20 Blood Culture - Preliminary, Resulted No growth after 24 hours . All specim... Current Medications Current Medications Medications (Trade) Dose Ordered Sig/Too Route PRN Reason Start Time Stop Time Status Last Admin Dose Admin Albuterol Sulfate (Proventil Neb) 2.5 mg Q2HP PRN NEB SHORTNESS OF BREATH 04/01/20 17:15 04/01/20 18:21 DC Albuterol/ Ipratropium (Duoneb (Ipr 0.5mg/Alb 2.5mg)) 3 ml RQID NEB 04/01/20 20:00 04/01/20 18:21 DC Alprazolam (Xanax) 0.25 mg BID PO 04/01/20 21:00 04/02/20 08:58 DC 04/01/20 20:07 Budesonide/ Formoterol Fumarate (Symbicort 160/ 4.5mcg) 2 puff BID INH 04/01/20 21:00 04/01/20 23:33 DC Budesonide/ Formoterol Fumarate (Symbicort 160/ 4.5mcg) 2 puff RBID INH 04/02/20 08:00 04/03/20 08:08 Chlorhexidine Gluconate (Peridex Oral Rinse) SWAB/BRUSH ORAL CAVITY BID MT 04/01/20 21:00 04/03/20 10:38 Dextrose (Dextrose 50%) 25 ml STAT STAT IV 04/03/20 07:30 04/03/20 07:36 DC Dextrose (Dextrose 50%) 50 ml STAT STAT IV 04/03/20 07:34 04/03/20 08:59 DC Docusate Sodium (Colace) 100 mg BID PO 04/01/20 21:00 Enoxaparin Sodium (Lovenox) 40 mg DAILY SC 04/02/20 09:00 04/03/20 10:32 Home Med (Med Rec Complete!) ASDIRECTED XX 04/01/20 18:00 04/01/20 18:07 DC Hydralazine HCl (Apresoline) 10 mg Q8H IV 04/01/20 20:00 04/02/20 08:58 DC 04/02/20 04:16 Hydralazine HCl (Apresoline) 10 mg Q8H PRN IV SEE PROTOCOL 04/02/20 09:00 Insulin Human Regular (HumuLIN R INSULIN) 10 units STAT STAT IV 04/03/20 07:30 04/03/20 08:59 DC Ipratropium Trinity (Atrovent 0.02%) 0.5 mg Q4HP PRN INH DYSPNEA 04/02/20 04:00 04/02/20 03:35 Ipratropium Trinity (Atrovent Hfa) 2 puff Q6HP PRN INH SHORTNESS OF BREATH 04/01/20 23:00 04/02/20 00:24 DC Levalbuterol HCl (Xopenex Neb) 1.25 mg Q2HP PRN NEB SOB/WHEEZING 04/01/20 18:30 04/01/20 21:06 Levalbuterol HCl (Xopenex Neb) 1.25 mg Q4H NEB 04/01/20 18:30 04/01/20 23:32 DC 04/01/20 23:03 Levalbuterol HCl (Xopenex Neb) 1.25 mg RQ4H NEB 04/02/20 04:00 04/03/20 11:21 Levofloxacin 750 mg/IV Miscellaneous Supplies 150 ml @ 100 mls/hr Q24H IV 04/01/20 20:00 04/02/20 20:25 Methylprednisolone (SOLUmedrol) 60 mg Q8H IV 04/01/20 20:00 04/03/20 04:06 Metoprolol Succinate (TopROL XL) 50 mg DAILY PO 04/02/20 09:00 04/03/20 10:32 Ondansetron HCl (ZOFRAN INJection) 4 mg Q6HP PRN IV NAUSEA OR VOMITING 04/02/20 09:00 04/03/20 07:47 Pantoprazole Sodium (Protonix) 40 mg DAILY PO 04/02/20 09:00 04/03/20 10:31 Polyethylene Glycol (Miralax) 1 pkt DAILYPRN PRN PO CONSTIPATION 04/01/20 18:15 Sodium Chloride 1,000 ml @ 75 mls/hr [id number] IV 04/02/20 09:00 04/02/20 22:41 Tiotropium Trinity (Spiriva Handihaler) 1 inhalation DAILY@08 INH 04/02/20 08:00 04/03/20 08:00 Venlafaxine HCl (Effexor Xr) 75 mg DAILY PO 04/01/20 09:00 04/02/20 08:58 DC Allergies Coded Allergies: Sulfa (Sulfonamide Antibiotics) (Verified Allergy, Severe, CANT BREATHE, 04/01/20) prednisone (Verified Adverse Reaction, Mild, SUICIDAL IDEATIONS, 04/01/20) Yesenia Nix MD Apr 03, 2020 12:07
[2020-04-03 13:10] LABS: BLOOD UREA NITROGEN 25 MG/DL (7-18); CALCIUM LEVEL 10.1 MG/DL (8.8-10.2); CARBON DIOXIDE LEVEL 41 MEQ/L (21-32); CHLORIDE LEVEL 98 MEQ/L (98-107); CREATININE FOR GFR 0.52 MG/DL (0.55-1.30); GLOMERULAR FILTRATION RATE > 60.0 (>45); GLUCOSE, FASTING 132 MG/DL (70-100); POTASSIUM SERUM 4.2 MEQ/L (3.5-5.1); SODIUM LEVEL 141 MEQ/L (136-145)
[2020-04-03] MEDS ORDERED: ALPRAZolam 0.25 MG TAB PO ONE (17:00)
[2020-04-03] MEDS ORDERED: MORPHINE 2 MG/ML 1ML VIAL (J2270) IV ONE (18:15)
[2020-04-03] MEDS: LevoFLOXacin IV 750 MG in IV 1 EA IV SCH (20:30)
[2020-04-03] MEDS ORDERED: ALPRAZolam 0.25 MG TAB PO SCH (21:00)
[2020-04-04] VITALS (51 sets, daily range): BP systolic 95–229; BP diastolic 52–105
[2020-04-04] MEDS: NS 1,000 ML IV SCH ×2 (01:00→16:34)
[2020-04-04] MEDS: LEVALBUTEROL 1.25 MG/0.5 ML CONCENTRATE NEB NEB SCH ×5 (03:28→20:00)
[2020-04-04 04:44] LABS: HEMATOCRIT 45.5 % (36.0-47.0); HEMOGLOBIN 13.6 g/dl (12.0-15.5); MEAN CORPUSCULAR HEMOGLOBIN 30.1 pg (27.0-33.0); MEAN CORPUSCULAR HGB CONC 29.9 g/dl (32.0-36.5); MEAN CORPUSCULAR VOLUME 100.7 fl (80.0-96.0); PLATELET COUNT, AUTOMATED 186 10^3/uL (150-450); RED BLOOD COUNT 4.52 10^6/uL (4.00-5.40); WHITE BLOOD COUNT 6.4 10^3/uL (4.0-10.0)
[2020-04-04] MEDS: methylPREDNISolone 125MG 2ML VIAL IV SCH ×3 (05:01→20:32)
[2020-04-04 05:08] LABS: ALBUMIN 3.7 GM/DL (3.2-5.2); ALT/SGPT 36 U/L (12-78); BILIRUBIN,TOTAL 0.4 MG/DL (0.2-1.0); BLOOD UREA NITROGEN 24 MG/DL (7-18); CALCIUM LEVEL 9.3 MG/DL (8.8-10.2); CARBON DIOXIDE LEVEL 42 MEQ/L (21-32); CHLORIDE LEVEL 98 MEQ/L (98-107); CREATININE FOR GFR 0.61 MG/DL (0.55-1.30); GLOMERULAR FILTRATION RATE > 60.0 (>45); GLUCOSE, FASTING 129 MG/DL (70-100); POTASSIUM SERUM 4.1 MEQ/L (3.5-5.1); SODIUM LEVEL 144 MEQ/L (136-145); TOTAL PROTEIN 6.7 GM/DL (6.4-8.2)
[2020-04-04] MEDS: ONDANSETRON 4MG/2ML VIAL IV PRN ×3 (05:14→17:55)
[2020-04-04] MEDS ORDERED: METOPROLOL 5 MG/5 ML VIAL IV STA (05:28)
[2020-04-04] MEDS: TIOTROPIUM INHALER/CAPSULE (SPIRIVA) INH SCH (07:23)
[2020-04-04] MEDS: SYMBICORT 160/4.5MCG INHALER 6GM INH SCH ×2 (07:23→20:31)
[2020-04-04] MEDS: NITROGLYCERIN 2% OINT 1 GM *U/D* PKT TOP SCH ×4 (07:56→20:31)
[2020-04-04] MEDS: METOPROLOL 5 MG/5 ML VIAL IV SCH ×3 (07:56→08:20)
[2020-04-04] MEDS ORDERED: E-Z-GAS II EFFERVESCENT PACKET (SODIUM BICARB./CITRIC ACID/SIMETHICONE) As Ordered ONE (09:58)
[2020-04-04] MEDS ORDERED: E-Z-PAQUE 96% w/w SUSP 176GM BTL As Ordered ONE (09:58)
[2020-04-04] MEDS ORDERED: E-Z-HD 98% w/w 340GM SUSP BTL As Ordered ONE (09:58)
[2020-04-04 10:36] LABS: ABG BASE EXCESS 11.3 (-2.0-2.0); ABG HCO3 43.6 MEQ/L (22.0-26.0); ABG O2 SATURATION 93.2 % (95.0-99.0); ABG PARTIAL PRESSURE O2 75.7 mmHg (75.0-100.0); ABG TOTAL CO2 46.8 MEQ/L (23.0-31.0)
--- NOTE | 2020-04-04 11:09 | IPNPDOC ---
Date Seen The patient was seen on 04/04/20. Progress Note SUBJECTIVE: Patient remained tachycardic and at bedtime with uncontrolled blood pressure this morning over 200. She complains of some headache which is diffused without neck rigidity, fever or chills. , Shortness of breath is only slightly improved.. She denies any chest pain, pressure, tightness, lightheadedness or dizziness OBJECTIVE: PHYSICAL EXAMINATION: VS: Please see below GEN.: Anxious, use of respiratory accessory muscles. No cyanosis. 6-7 word conversational dyspnea. No pallor . HEENT: Normocephalic, atraumatic, moist mucous membranes, nasal cannula in place , no JVD, no lymphadenopathy, no carotid bruit , Heart: tachycardic, sinus rhythm, S1S2 normal, no murmurs/rubs/gallops . Lungs: Decreased breath sounds bilaterally . No adventitious breath sounds . Abdomen: BS positive in 4 quadrants, soft, nontender, nondistended, no rebound or guarding, no organomegaly . Extremities: No cyanosis, clubbing, lower extremity edema bilaterally LABORATORY DATA: Please see below MICROBIOLOGY: Resp panel: neg Blood cultures: Negative IMAGING: CXR 04/03/20: 1. Stable chronic COPD/emphysematous disease and scattered scarring. 2. Previously suggested right lower lobe atelectasis/infiltrate resolved. 3. No new acute process. CTA chest: 1. No evidence for pulmonary embolus. 2. Advanced COPD/emphysematous disease. 3. Mild superimposed left perihilar and right basilar atelectasis. CT abd/pelvis: 1. Moderate fecal stasis. 2. Chronic stable changes. No further acute abdominopelvic pathology appreciated. 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 PROBLEM LIST: . Acute hypoxic and hypercapnic respiratory failure . Acute COPD exacerbation Anxiety Dysphagia sinus tachycardia Hypertensive urgency Constipation Hyperlipidemia Anxiety/depression PLAN: Patient is currently nothing by mouth for evaluation of dysphasia. May resume previous diet After evaluation if no new recommendations and signs of aspiration. Due to nothing by mouth status. She was given intravenous metoprolol to help with her tachycardia and hypertensive urgency as well as nitroglycerin topical every 4 hourly for better blood pressure control. . She may resume metoprolol by mouth after evaluation of her dysphasia. [employer] consult for help in management of her acute hypoxic hypercapnic COPD exacerbation. Patient remains very anxious , But we are cautious about any sedatives, anxiolytics or hypnotics due to risk of worsening Hypercarbia. VS, I&O, 24H, Fishbone Vital Signs/I&O Vital Signs Date Time Temp Pulse Resp B/P (MAP) Pulse Ox O2 Delivery O2 Flow Rate FiO2 04/04/20 10:01 113 198/97 (130) 93 Nasal Cannula 2.0 04/04/20 07:26 24 04/04/20 05:09 98.9 04/04/20 03:01 30 I&O- Last 24 Hours up to 6 AM 04/04/20 06:00 Intake Total 1815 ml Output Total 950 ml Balance 865 ml Laboratory Data 24H LABS Laboratory Tests 2 04/03/20 12:23: Anion Gap 2L, Glomerular Filtration Rate > 60.0, Calcium Level 10.1 04/04/20 04:19: Anion Gap 4L, Glomerular Filtration Rate > 60.0, Calcium Level 9.3, Nucleated Red Blood Cells % (auto) 0.0, Total Bilirubin 0.4, Aspartate Amino Transf (AST/SGOT) 31, Alanine Aminotransferase (ALT/SGPT) 36, Alkaline Phosphatase 110, Total Protein 6.7, Albumin 3.7, Albumin/Globulin Ratio 1.2 04/04/20 09:35: Blood Gas Bicarbonate Standard 35.0H, Arterial Blood pH 7.240*L, Arterial Blood Partial Pressure CO2 104.0*H, Arterial Blood Partial Pressure O2 75.7, Arterial Blood Total CO2 46.8H, Arterial Blood HCO3 43.6H, Arterial Blood Base Excess 11.3H, Arterial Blood Oxygen Saturation 93.2L CBC/BMP Laboratory Tests 04/03/20 12:23 04/04/20 04:19 Microbiology Microbiology 04/01/20 Blood Culture - Preliminary, Resulted No Growth after 48 hours. All Specime... 04/01/20 Blood Culture - Preliminary, Resulted No Growth after 48 hours. All Specime... LUIGI POLLOCK MD Apr 04, 2020 11:09
[2020-04-04] MEDS: DOCUSATE SODIUM 100MG CAPSULE PO SCH ×2 (11:43→20:30)
[2020-04-04] MEDS: ALPRAZolam 0.25 MG TAB PO SCH ×2 (11:43→20:30)
[2020-04-04] MEDS: PANTOPRAZOLE 40MG TAB (PROTONIX) PO SCH (11:43)
[2020-04-04] MEDS: METOPROLOL SUCC (TopROL XL) 50MG **XL** TAB PO SCH (11:44)
[2020-04-04] MEDS: CHLORHEXIDINE GLUCONATE 0.12 % 15ML UDC (PERIDEX ORAL RINSE) MT SCH ×2 (11:44→20:30)
[2020-04-04] MEDS: ENOXAPARIN 40MG/0.4ML SYRINGE (J1650 PER 10MG) SC SCH (11:51)
[2020-04-04] MEDS: hydrALAZINE 20MG/ML 1ML VIAL (J0360 PER 20MG) IV PRN (12:14)
--- NOTE | 2020-04-04 12:26 | CCN ---
CRITICAL CARE NOTE DATE: 04/04/2020 SUBJECTIVE: Ms. Esquivel is seen in the ICU. She reports that overall, she is feeling about the same. Yesterday, her BiPAP was adjusted to 10/5 and her oxygen saturations remained good on those settings. When she is off BiPAP, then she is on 2 liters of oxygen by nasal cannula. She has been afebrile. Medical attending has been managing her blood pressure, which has been high and therefore, Nitro-Bid topical has been added, as well as the patient was given three doses of IV metoprolol tartrate. She is already on metoprolol succinate and hydralazine. OBJECTIVE: VITAL SIGNS: Temperature 98.9, pulse 96, respiratory rate 24, blood pressure 174/91, pulse ox 95% on 2 liters by nasal cannula. GENERAL: The patient is alert and oriented x3. Mood and affect are appropriate. The patient speaks in complete sentences. She is sitting up in her bed. HEENT: Head is normocephalic, atraumatic. Moist mucous membranes. Tongue is midline. NECK: Supple. No cervical lymphadenopathy. No JVD. Trachea is midline. CHEST: Clear to auscultation bilaterally with no wheezes, rales, or rhonchi. Diminished breath sounds. No accessory muscle use. HEART: Regular rate and rhythm. S1, S2. No murmurs. ABDOMEN: Positive bowel sounds, soft, and nontender. No rebound or guarding. EXTREMITIES: No clubbing, cyanosis, or edema. SKIN: Warm and dry. NEUROLOGIC: Nonfocal. LABORATORY DATA: WBC 6.4, hemoglobin 13.6, hematocrit 45.5, platelets 186,000. Sodium 144, potassium 4.1, chloride 98, carbon dioxide 42, BUN 24, creatinine 0.61, glucose 129, calcium 9.3, total bilirubin 0.4, AST 31, ALT 36, alkaline phosphatase 110, total protein 6.7, albumin 3.7. ASSESSMENT AND PLAN: 1. Acute on chronic hypoxic and hypercarbic respiratory failure. Yesterday, BiPAP was adjusted to 10/5 and the patient has been satting good while on BiPAP on those settings. When she is not on BiPAP, she is tolerating 2 liters of oxygen by nasal cannula with good sats. Will obtain an arterial blood gas (ABG) today. 2. Emphysema. The patient is on Solu-Medrol, as well Xopenex and Atrovent nebulizers. She is on Symbicort and Spiriva. 3. Obstructive sleep apnea. As noted, the patient is on BiPAP. Settings were adjusted to 10/5. These were different than the patient's home settings. This will likely need to be adjusted to the new settings and we will need to look into this further. Total Critical Care Time, excluding all procedures, was 64 minutes. MTDD
--- NOTE | 2020-04-04 13:06 | REP ---
INDICATION: dysphasia. COMPARISON: 04/01/2020. TECHNIQUE: SINGLE PORTABLE AP VIEW OF THE CHEST WAS PERFORMED. FINDINGS: This is a academic affairs specialist film for a scheduled esophagram. The patient refused the exam. Significant bullous changes are seen in the upper lungs. There are bibasilar fibrotic changes. The heart mediastinum appear unchanged. IMPRESSION: Stable exam. <Electronically signed by Zak Bowling > 04/04/20 1720
--- NOTE | 2020-04-04 13:08 | REP ---
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 COMPARISON: None. TECHNIQUE: Two practical nursing faculty films of abdomen and pelvis performed for a scheduled upper GI series. The patient refused the exam. FINDINGS: Moderate fecal material seen in the rectosigmoid colon. No dilated small bowel loops are seen. Metallic clips are seen in the right upper quadrant. There are degenerative changes of the spine. IMPRESSION: Moderate fecal material distal colon. <Electronically signed by Zak Bowling > 04/04/20 [id number]
[2020-04-04] MEDS ORDERED: LevoFLOXacin 750MG/150ML IV BAG (J1956 PER 250MG) As Ordered ONE (22:40)
[2020-04-04] MEDS: LevoFLOXacin IV 750 MG in IV 1 EA IV SCH (22:43)
[2020-04-05] VITALS: BP 188/86
[2020-04-05] MEDS: LEVALBUTEROL 1.25 MG/0.5 ML CONCENTRATE NEB NEB SCH ×5 (00:36→19:58)
[2020-04-05 01:00] VITALS: BP 155/79
[2020-04-05] MEDS: NITROGLYCERIN 2% OINT 1 GM *U/D* PKT TOP SCH ×5 (01:22→14:29)
[2020-04-05 02:00] VITALS: BP 156/79
[2020-04-05 04:00] VITALS: BP 164/82
[2020-04-05 05:00] VITALS: BP 169/81
[2020-04-05] MEDS: methylPREDNISolone 125MG 2ML VIAL IV SCH (05:06)
[2020-04-05] MEDS: hydrALAZINE 20MG/ML 1ML VIAL (J0360 PER 20MG) IV PRN (06:14)
[2020-04-05] MEDS: ONDANSETRON 4MG/2ML VIAL IV PRN ×2 (06:47→19:11)
[2020-04-05] MEDS: NS 1,000 ML IV SCH (07:27)
[2020-04-05 08:00] VITALS: BP 158/74
[2020-04-05] MEDS: SYMBICORT 160/4.5MCG INHALER 6GM INH SCH ×2 (08:00→20:00)
[2020-04-05] MEDS: TIOTROPIUM INHALER/CAPSULE (SPIRIVA) INH SCH (08:00)
[2020-04-05] MEDS: ENOXAPARIN 40MG/0.4ML SYRINGE (J1650 PER 10MG) SC SCH (08:23)
[2020-04-05] MEDS: METOPROLOL SUCC (TopROL XL) 50MG **XL** TAB PO SCH (08:24)
[2020-04-05] MEDS: CHLORHEXIDINE GLUCONATE 0.12 % 15ML UDC (PERIDEX ORAL RINSE) MT SCH (08:24)
[2020-04-05] MEDS: ALPRAZolam 0.25 MG TAB PO SCH (08:24)
[2020-04-05] MEDS: PANTOPRAZOLE 40MG TAB (PROTONIX) PO SCH (08:25)
[2020-04-05] MEDS: DOCUSATE SODIUM 100MG CAPSULE PO SCH ×2 (08:25→23:57)
--- NOTE | 2020-04-05 09:10 | IPNPDOC ---
Date Seen The patient was seen on 04/05/20. Progress Note SUBJECTIVE: refused meds due to persistent dysphagia, and c/o epigastric pain from hiatal hernia. not comfortable all night, very anxious despite at bedside. pt requesting hospice. "I just want to go to hospice." OBJECTIVE: PHYSICAL EXAMINATION: VS: Please see below GEN.: Anxious, use of respiratory accessory muscles. No cyanosis. 5 word conversational dyspnea. No pallor . HEENT: Normocephalic, atraumatic,dry mucous membranes, nasal cannula in place , no JVD, no lymphadenopathy, no carotid bruit , Heart: tachycardic, sinus rhythm, S1S2 normal, no murmurs/rubs/gallops . Lungs: Decreased breath sounds bilaterally . No adventitious breath sounds . Abdomen: BS positive in 4 quadrants, soft, nontender, nondistended, no rebound or guarding, no organomegaly . Extremities: No cyanosis, clubbing, lower extremity edema bilaterally LABORATORY DATA: Please see below MICROBIOLOGY: Resp panel: neg Blood cultures: Negative IMAGING: CXR 04/03/20: 1. Stable chronic COPD/emphysematous disease and scattered scarring. 2. Previously suggested right lower lobe atelectasis/infiltrate resolved. 3. No new acute process. CTA chest: 1. No evidence for pulmonary embolus. 2. Advanced COPD/emphysematous disease. 3. Mild superimposed left perihilar and right basilar atelectasis. CT abd/pelvis: 1. Moderate fecal stasis. 2. Chronic stable changes. No further acute abdominopelvic pathology appreciated. ASSESSMENT: 64-year-old female with chronic hypoxic respiratory failure ,COPD , alpha1 antitrypsin deficiency, hyperlipidemia, depression/anxiety, obstructive sleep apnea admitted to ICU for acute on chronic hypoxic and hypercapnic Respiratory failure, and acute on chronic COPD exacerbation, requiring BiPAP therapy and regulatory affairs intern management. PROBLEM LIST: . Acute hypoxic and hypercapnic respiratory failure . Acute COPD exacerbation Anxiety Dysphagia sinus tachycardia Hypertensive urgency Constipation Hyperlipidemia Anxiety/depression PLAN: requesting hospice. dnr /dni. will make comfort measures only. pfs consulted. transfer to [facility] when pt is ready. VS, I&O, 24H, Fishbone Vital Signs/I&O Vital Signs Date Time Temp Pulse Resp B/P (MAP) Pulse Ox O2 Delivery O2 Flow Rate FiO2 04/05/20 08:24 135 184/86 04/05/20 08:05 40 04/05/20 05:00 24 97 NIPPV (BIPAP/CPAP) 04/05/20 04:00 97.6 04/04/20 17:03 2.0 I&O- Last 24 Hours up to 6 AM 04/05/20 06:00 Intake Total 1853 ml Output Total 610 ml Balance 1243 ml Laboratory Data 24H LABS Laboratory Tests 2 04/04/20 09:35: Blood Gas Bicarbonate Standard 35.0H, Arterial Blood pH 7.240*L, Arterial Blood Partial Pressure CO2 104.0*H, Arterial Blood Partial Pressure O2 75.7, Arterial Blood Total CO2 46.8H, Arterial Blood HCO3 43.6H, Arterial Blood Base Excess 11.3H, Arterial Blood Oxygen Saturation 93.2L Microbiology Microbiology 04/01/20 Blood Culture - Preliminary, Resulted No Growth after 72 hours. All specime... 04/01/20 Blood Culture - Preliminary, Resulted No Growth after 72 hours. All specime... LUIGI POLLOCK MD Apr 05, 2020 09:10
--- NOTE | 2020-04-05 10:12 | CCN ---
CRITICAL CARE NOTE DATE: 04/05/2020 SUBJECTIVE: Ms. Esquivel states that she does not want to wear the BiPAP anymore. She just wants to be comfortable. She does not want to swallow and she cannot swallow her pills. She is having nausea and retching when she tries to swallow. She states she is ready for home Hospice given her end-stage lung disease. She does desire to go home. I have arranged for a Hospice consult. Total time spent with the patient was 40 minutes in arranging care and having family discussions with her and her . Ultimately, they would like to take her home, but they are not sure if they have 24-hour coverage. OBJECTIVE: VITAL SIGNS: Temperature is 97.6, pulse is 135, respiratory rate is 24, blood pressure is 184/86. Oxygen saturation is 97% on 0.40 FiO2. HEENT: Sclerae clear and anicteric. Pupils are equal and reactive to light. Mucous membranes are dry. Lips are chapped with some fissuring. NECK: Supple with no tracheal deviation or mass. There is elevated JVP. PULMONARY: Decreased breath sounds throughout without rales, rhonchi, or wheezes. No dullness to percussion. No accessory muscle. ABDOMEN: Soft, nontender, and nondistended with no hepatosplenomegaly and no masses or hernia. EXTREMITIES: No cyanosis, clubbing, or edema. MUSCULOSKELETAL: Significant muscle wasting. LABORATORY EVALUATION: Shows sodium 144, potassium 4.1, chloride 98, bicarb of 42, BUN of 24, creatinine of 0.61, and a glucose of 129. Calcium is 9.3. Heme: White blood cell count is 6.4, hemoglobin 13.6. MCV is elevated. Platelet count of 186,000. Arterial blood gas was not performed today due to patient comfort. IMAGING: None today. IMPRESSION AND PLAN: Acute on chronic respiratory failure with end-stage lung disease. The patient has had multiple conversations with her primary extruder operator helper in regards to Hospice, states she is ready now for Hospice, and wants to be home as soon as possible. Her is understanding, slightly hesitant about his ability to provide care for her. I will arrange a Hospice meeting. In the meantime, we will discontinue her p.o. medications and place her on comfort measures only. I have called the pharmacy to see if there is a sublingual benzodiazepine. The patient has Roxanol currently. My hope is to be able to get her home and this may not be possible.
[2020-04-05] MEDS: MORPHINE 10MG/0.5ML ORAL CONCENTRATE SOLUTION U/D SL PRN ×2 (10:26→19:11)
[2020-04-05] MEDS ORDERED: HYOS125TA PO (14:45)
[2020-04-05] MEDS ORDERED: ATIV1TAB10 PO (14:45)
[2020-04-05] MEDS ORDERED: MORP20SO3 PO (14:45)
[2020-04-05] MEDS ORDERED: SCOPOLAMINE 1MG TRANSDERMAL PATCH TOP SCH (18:30)
[2020-04-05] MEDS ORDERED: cloNIDine HCL 0.3 MG/24 HR PATCH TOP SCH (19:00)
[2020-04-05] MEDS: LevoFLOXacin IV 750 MG in IV 1 EA IV SCH (22:47)
[2020-04-06] MEDS: NITROGLYCERIN 2% OINT 1 GM *U/D* PKT TOP SCH ×5 (01:02→12:19)
[2020-04-06] MEDS: MORPHINE 10MG/0.5ML ORAL CONCENTRATE SOLUTION U/D SL PRN ×4 (01:11→12:18)
[2020-04-06] MEDS: LEVALBUTEROL 1.25 MG/0.5 ML CONCENTRATE NEB NEB SCH ×4 (03:19→11:38)
[2020-04-06] MEDS: SYMBICORT 160/4.5MCG INHALER 6GM INH SCH (08:00)
[2020-04-06] MEDS: TIOTROPIUM INHALER/CAPSULE (SPIRIVA) INH SCH (08:00)
[2020-04-06] MEDS: DOCUSATE SODIUM 100MG CAPSULE PO SCH (09:00)
--- NOTE | 2020-04-06 11:21 | DS.PDOC ---
Discharge Summary General Date of Admission Apr 01, 2020 at 17:11 Date of Discharge 04/06/20 COMFORT MEASURES ONLY HOME WITH HOSPICE DNR/DNI Discharge Summary DISCHARGE DIAGNOSES: Acute on chronic hypoxic and hypercapnic respiratory failure requiring BiPAP . Acute on chronic COPD exacerbation Alpha-1 antitrypsin deficiency with severe end-stage emphysema Anxiety Dysphagia sinus tachycardia Hypertensive urgency Constipation Hyperlipidemia Anxiety/depression Pulmonary cachexia . Protein calorie malnutrition Debility and deconditioning DISCHARGE MEDICATIONS: SEE BELOW Allergies see below DISCHARGE INSTRUCTIONS: COMFORT MEASURES ONLY, DO NOT RESUSCITATE, DO NOT IN TUBATE Primary care physician to address all comfort measures only medications and hospice needs as outpatient. DURABLE MEDICAL EQUIPMENT: Hospital bed: -The patient has a medical condition that requires positioning of the body in weight, is not feasible with an ordinary bed in order to alleviate pain. -The beneficiary requires frequent changes in body position and has an immediate need for change in body position due to end-stage COPD and severe emphysema Wheelchair: -The beneficiary has a mobility limitation due to end-stage emphysema and alpha 1 antitrypsin deficiency with acute on chronic hypoxic respiratory failure that significantly impairs her ability to participate in toilet training feeding, dressing, grooming and bathing and customary locations in the home. Her condition prevents her from accomplishing activities of daily living due to severe debility and inability to ambulate entirely -The beneficiary's mobility limitation cannot be sufficiently resolved by the use of an appropriately fitted cane or walker -The beneficiary's home provides adequate access between rooms maneuvering space and surfaces for use of the manual wheelchair that is provided -Use of a manual wheelchair will significantly improve the beneficiary's ability to participate in mobility related activities of daily living in the beneficiary. Will use it on a regular basis in the home -The beneficiary has not expressed an unwillingness to use a manual wheelchair that is provided in the home The beneficiary has a caregiver who is available willing and able to provide assistance with a wheelchair. CONSULTANTS: Dr. Jah Huynh holter scanning technician HISTORY OF PRESENT ILLNESS: Per Dr. Nix's note: " 64-year-old female with past medical history of chronic respiratory failure secondary to COPD and also 1 antitrypsin deficiency, hyperlipidemia, depression/anxiety, obstructive sleep apnea who presented to [facility] emergency room after increasing shortness of breath and chest tightness worsening last evening. The patient had a recent admission on 08/01 for acute on chronic respiratory failure secondary to COPD exacerbation, the patient was discharged in [facility] at that time. They she returns complaining of similar symptoms that she had during her last admission which include increased shortness of breath beginning suddenly, waking her from sleep. She also has "heartburn" or chest tightness substernally. Chest tightness is described as intermittent, worsened between 310/10 on pain scale. She describes it as sometimes radiating from the abdomen up to the substernal area. No radiation to the neck or down the left arm. Pain is similar to tightness she experienced last admission. The patient states she never really felt improved since her last discharge and has recently went to her primary care physician to be evaluated. At that visit they increased her metoprolol to 50 mg daily due to uncontrolled and also her Nexium to 2 tabs daily. She came to the emergency room today due to symptoms not improved. The patient denies cough, fevers, chills, diarrhea but admits to lethargy, lightheadedness, dizziness occasionally and unsteady gait. The emergency room blood pressure showed to be elevated in the 170s systolic, she was saturating 92% on 6 L nasal cannula (this is her home amount of oxygen) , heart rate 113, respiratory rate was 22. She was given steroids, DuoNeb treatment. She was sent for CT of the chest with contrast and CT abdomen, both of which did not show any acute cardiopulmonary or abdominal pathologies. CBC was unremarkable along with CMP. ABG was done due to history of chronic hypercapnia and worsening shortness of breath. pH 7.308/ pCO2 90/ pO2 109. Patient was awake, alert and oriented with no altered mental state. Emergency room physician discussed with holter scanning technician surgeon's assistant, Dr. Huynh, and together decided against BiPAP at this time. The patient was admitted to ICU for acute on chronic hypercapnic, hypoxic respiratory failure secondary to COPD exacerbation". HOSPITAL COURSE: Despite BiPAP therapy. Patient continued to have worsening respiratory distress and increasing hypercarbia. She had episodes of severe anxiety, sinus tachycardia and hypertensive urgency initially treated with Xanax twice a day as well as nitroglycerin patch, which she did not tolerate with complaints of feeling diaphoretic. Patient was agreeable to taking clonidine patch, which was started. She requested comfort measures only and hospice referral. Knowing that she has end-stage alpha 1 antitrypsin with severe emphysema and no improvement on BiPAP. Patient's and daughter agreed and she is being discharged home with hospice. Her holter scanning technician agrees with the patient's prognosis and suggested as needed, Roxanol for discomfort and restlessness. DISCHARGE PHYSICAL EXAMINATION: VS: Please see below GEN.: Anxious, use of respiratory accessory muscles. No cyanosis. 6-7 word conversational dyspnea. No pallor . HEENT: Normocephalic, atraumatic, moist mucous membranes, nasal cannula in place , no JVD, no lymphadenopathy, no carotid bruit , Heart: tachycardic, sinus rhythm, S1S2 normal, no murmurs/rubs/gallops . Lungs: Decreased breath sounds bilaterally . No adventitious breath sounds . Abdomen: BS positive in 4 quadrants, soft, nontender, nondistended, no rebound or guarding, no organomegaly . Extremities: No cyanosis, clubbing, lower extremity edema bilaterally LABORATORY DATA: Please see below MICROBIOLOGY: Resp panel: neg Blood cultures: Negative IMAGING: CXR 04/03/20: 1. Stable chronic COPD/emphysematous disease and scattered scarring. 2. Previously suggested right lower lobe atelectasis/infiltrate resolved. 3. No new acute process. CTA chest: 1. No evidence for pulmonary embolus. 2. Advanced COPD/emphysematous disease. 3. Mild superimposed left perihilar and right basilar atelectasis. CT abd/pelvis: 1. Moderate fecal stasis. 2. Chronic stable changes. No further acute abdominopelvic pathology appreciated. Time spent on discharge 30 minutes Vital Signs/I&Os Vital Signs Date Time Temp Pulse Resp B/P (MAP) Pulse Ox O2 Delivery O2 Flow Rate FiO2 04/06/20 09:54 16 04/06/20 09:23 184/86 04/06/20 08:19 40 04/06/20 07:30 NIPPV (BIPAP/CPAP) 04/05/20 10:56 4.0 04/05/20 08:24 135 04/05/20 08:00 96.8 98 I&O- Last 24 Hours up to 6 AM 04/06/20 06:00 Intake Total 750 ml Output Total 200 ml Balance 550 ml Microbiology Microbiology 04/01/20 Blood Culture - Preliminary, Resulted No Growth after 72 hours. All specime... 04/01/20 Blood Culture - Preliminary, Resulted No Growth after 72 hours. All specime... Discharge Medications Scheduled Alprazolam (Alprazolam) 0.25 Mg Tablet, 0.25 MG PO BID, (Reported) Budesonide/Formoterol Fumarate (Budesonide-Formoterol 160-4.5) 10.2 Gm Hfa.aer.ad, 2 PUFFS INH BID, (Reported) Ipratropium [place] (Ipratropium [place]) 0.2 Mg/1 Ml Solution, 0.2 MG INH Q4H, (Reported) MIXED WITH XOPENEX Levalbuterol HCl (Levalbuterol HCl) 1.25 Mg/3 Ml Vial.neb, 1.25 MG INH Q4H, (Reported) MIXED WITH IPRATROPIUM Metoprolol Succinate (Metoprolol Succinate) 50 Mg Tab.er.24h, 50 MG PO DAILY, (Reported) Venlafaxine HCl (Venlafaxine HCl ER) 75 Mg Cap.er.24h, 75 MG PO DAILY, ( Reported) Scheduled PRN Hyoscyamine Sulfate (Hyoscyamine Sulfate) 0.125 Mg Tab.subl, 0.125 MG PO Q4HP PRN for TERMINAL SECRETIONS Use sublingually if unable to swallow Lorazepam (Ativan) 0.5 Mg Tablet, 0.5 MG PO Q4HP PRN for ANXIETY/AGITATION Use sublingually if unable to swallow Morphine Sulfate (Morphine Sulfate) 100 Mg/5 Ml Solution, 0.25-1 ML PO Q2H PRN for PAIN OR DYSPNEA Use sublingually if unable to swallow Allergies Coded Allergies: Sulfa (Sulfonamide Antibiotics) (Verified Allergy, Severe, CANT BREATHE, 04/01/20) prednisone (Verified Adverse Reaction, Mild, SUICIDAL IDEATIONS, 04/01/20) LUIGI POLLOCK MD Apr 06, 2020 11:05
[2020-04-06 12:19] VITALS: BP 160/89
== END 2020-04-06 13:37 | disposition home health service (06) | DRG 140 ==
LOC: EDBD 11:51 → EDUNIT# 11:51 → M ED 11:51 → M ED INP 17:11 → ENRESERV 21:10 → M PCU 21:28 → M MSPAV 04-05 16:05
PROVIDERS: ADMIT Internal Medicine; ATTEND General Practice
DX: J44.1 Chronic obstructive pulmonary disease with (acute) exacerbation (principal); J96.01 Acute respiratory failure with hypoxia; R64 Cachexia; E46 Unspecified protein-calorie malnutrition; E88.01 Alpha-1-antitrypsin deficiency; R13.10 Dysphagia, unspecified; J96.02 Acute respiratory failure with hypercapnia; I10 Essential (primary) hypertension; R00.0 Tachycardia, unspecified; I16.0 Hypertensive urgency; G47.33 Obstructive sleep apnea (adult) (pediatric); K59.00 Constipation, unspecified; Z51.5 Encounter for palliative care; F32.9 Major depressive disorder, single episode, unspecified; E78.5 Hyperlipidemia, unspecified; Z66 Do not resuscitate; Z79.899 Other long term (current) drug therapy; Z88.2 Allergy status to sulfonamides; Z88.8 Allergy status to other drugs, medicaments and biological substances; E55.9 Vitamin D deficiency, unspecified; L40.8 Other psoriasis; K44.9 Diaphragmatic hernia without obstruction or gangrene; M19.90 Unspecified osteoarthritis, unspecified site; K21.9 Gastro-esophageal reflux disease without esophagitis; F41.9 Anxiety disorder, unspecified